=== PATIENT | female | born 1970 | race Caucasian/White ===

== ENCOUNTER 2020-01-04 13:59 | Outpatient (REF) | payer OTHER, SELFPAY | END 2020-01-04 14:00 | disposition home or self-care (01) | LOC: HO.LNP 13:59 | PROVIDERS: Visit Provider Internal Medicine | DX: Z20.828 Contact with and (suspected) exposure to other viral communicable diseases (principal) | CPT/HCPCS: 87635 ==

== ENCOUNTER 2020-01-22 15:52 | Outpatient (REF) | payer OTHER, SELFPAY | END 2020-01-22 15:53 | disposition home or self-care (01) | LOC: HO.LNP 15:52 | PROVIDERS: Visit Provider Internal Medicine | DX: Z20.828 Contact with and (suspected) exposure to other viral communicable diseases (principal) | CPT/HCPCS: U0003 ==

== ENCOUNTER 2020-03-03 15:37 | Outpatient (REF) | payer OTHER, SELFPAY ==
[2020-03-03 17:07] LABS: Influenza A PCR NEGATIVE (Negative); Influenza B PCR NEGATIVE (Negative); Resp Syncy Virus RNA Qual PCR NEGATIVE (Negative); SARS COV2 PCR INHOUSE NEGATIVE (Negative)
== END 2020-03-03 15:38 | disposition home or self-care (01) ==
LOC: HO.LNP 15:37
PROVIDERS: Visit Provider Internal Medicine
DX: Z20.828 Contact with and (suspected) exposure to other viral communicable diseases (principal)
CPT/HCPCS: 0241U

== ENCOUNTER 2020-05-12 14:30 | Outpatient (REF) | payer OTHER, SELFPAY ==
[2020-05-12 15:23] LABS: Influenza A PCR NEGATIVE (Negative); Influenza B PCR NEGATIVE (Negative); Resp Syncy Virus RNA Qual PCR NEGATIVE (Negative); SARS COV2 PCR INHOUSE POSITIVE (Negative)
== END 2020-05-12 14:31 | disposition home or self-care (01) ==
LOC: HO.LNP 14:30
PROVIDERS: Visit Provider Internal Medicine
DX: R52 Pain, unspecified (principal); R50.9 Fever, unspecified
CPT/HCPCS: 0241U

== ENCOUNTER 2020-05-16 10:49 | Inpatient (IN) | payer OTHER, SELFPAY ==
[2020-05-16] VITALS (11 sets, daily range): BP systolic 107–147; BP diastolic 62–85; PULSE 65–118; RESP 12–90; TEMP 36–39.3; O2SAT 89–96; BMI 25.0
--- NOTE | ~2020-05-16 | XR_ITS ---
EXAMINATION: XR CHEST CLINICAL INFORMATION: COVID positive. Chest pain. COMPARISON: None TECHNIQUE: Frontal view of the chest was obtained. FINDINGS: The lungs are expanded with scattered patchy opacities in the mid lung bilaterally likely developing infiltrates. The upper and lower lungs are clear. The heart size and pulmonary vascularity is normal. No gross bony abnormality seen. XR/XR chest 1V IMPRESSION: Patchy opacities bilateral mid lung region likely developing infiltrates.
--- NOTE | ~2020-05-16 | US_ITS ---
EXAMINATION: US VENOUS ULTRASOUND WITH DOPPLER LOWER EXTREMITY, BILATERAL CLINICAL INFORMATION: Bilateral leg swelling. COMPARISON: None TECHNIQUE: Ultrasound of the deep veins is performed from the hip to the calf with compression sonography and color and pulse Doppler assessment. Spectral analysis with color-flow imaging is performed. FINDINGS: RIGHT: There is normal venous compression and respiratory variation and augmented flow. The visualized common femoral vein, superficial femoral vein, profunda femoral vein, popliteal vein, and the trifurcation region shows no evidence of deep venous thrombosis. There is no significant popliteal fossa cyst. LEFT: There is normal venous compression and respiratory variation and augmented flow. The visualized common femoral vein, superficial femoral vein, profunda femoral vein, popliteal vein, and the trifurcation region shows no evidence of deep venous thrombosis. There is no significant popliteal fossa cyst. If the patient's symptoms persist, followup ultrasound in 5 days 7 days might be of value to exclude proximal propagation from a non-visualized calf vein. US/US venous duplex LE BI IMPRESSION: No DVT demonstrated in the bilateral lower extremity.
--- NOTE | ~2020-05-16 | CT_ITS ---
EXAMINATION: CT ANGIOGRAM OF THE CHEST WITH AND WITHOUT CONTRAST (CT PULMONARY ANGIOGRAM FOR PE) CLINICAL INFORMATION: Reason for Exam Elevated D-dimer. COVID-19 positive. Tachycardia. COMPARISON: Portable chest radiograph 05/16/2020, 2 view chest radiographs 12/18/2018, CT abdomen and pelvis noncontrast 11/29/2014. TECHNIQUE: Prior to contrast administration, noncontrast localization images were obtained. Subsequently, multidetector volumetric imaging was performed from the thoracic inlet to below the diaphragms following the administration of 80 mL Omnipaque 350 intravenous contrast. Sagittal, coronal, and MIP oblique sagittal reformatted images were obtained on the CT workstation, uploaded to PACS, and reviewed. This CT examination was performed using dose optimization techniques as appropriate, variously including the following: *Automated exposure control *Adjustment of mA and/or kV according to patient size (this includes techniques or standardized protocols for targeted exams where dose is matched to indication/reason for exam; i.e. extremities or head) *Use of iterative reconstruction technique Total exam dose-length product 222 mGy-cm FINDINGS: QUALITY OF STUDY/CONTRAST BOLUS: Satisfactory. PULMONARY ARTERIES: No central or segmental pulmonary emboli. THORACIC AORTA: No aneurysm or dissection. LUNG: The central airways are clear and there is no endobronchial lesion or bronchiectasis. There are patchy bilateral airspace opacities predominantly mid and lower zones with confluent airspace consolidation superior segment right lower lobe, posterior lateral left upper lobe, and posterior lateral superior segment left lower lobe. Scattered bilateral round and oval opacities are randomly distributed along bronchovascular bundles and subpleural regions, ranging in size from 0.9 cm to largest 3.0 x 2.2 cm in the posterior lateral left lower lobe. There is no cavitation. PLEURA: No pneumothorax. No pleural thickening or effusion. MEDIASTINUM: Normal heart size. No pericardial effusion. No evidence of septal bowing or right heart strain. No pneumomediastinum. No mediastinal adenopathy. There are probable small bilateral hilar nodes. CHEST WALL/AXILLA: No axillary or internal mammary lymphadenopathy. OSSEOUS STRUCTURES: No acute or suspicious osseous abnormality. UPPER ABDOMEN: Unremarkable. No reflux of contrast into the hepatic veins to suggest elevated right heart pressures. CT/CT angio chest PE protocol IMPRESSION: 1. No pulmonary embolism. No thoracic aortic aneurysm or dissection. 2. Scattered bilateral airspace consolidation. There are also round and oval opacities 1-3 cm in size. Although there is no cavitation, the distribution may suggest septic emboli. Clinically correlate. 3. No pneumothorax, pneumomediastinum, or effusion. 4. Probable small bilateral hilar adenopathy. No mediastinal mass or adenopathy. VTE: negative
--- NOTE | ~2020-05-16 | CT_ITS ---
EXAMINATION: CT ANGIOGRAM OF THE CHEST WITH AND WITHOUT CONTRAST (CT PULMONARY ANGIOGRAM FOR PE) CLINICAL INFORMATION: Short of breath. COMPARISON: None TECHNIQUE: Prior to contrast administration, noncontrast localization images were obtained. Subsequently, multidetector volumetric imaging was performed from the thoracic inlet to below the diaphragms following the administration of 80 mL Omnipaque 350 intravenous contrast. No contrast reaction reported Sagittal, coronal, and MIP oblique sagittal reformatted images were obtained on the CT workstation, uploaded to PACS, and reviewed. This CT examination was performed using dose optimization techniques as appropriate, variously including the following: *Automated exposure control *Adjustment of mA and/or kV according to patient size (this includes techniques or standardized protocols for targeted exams where dose is matched to indication/reason for exam; i.e. extremities or head) *Use of iterative reconstruction technique Total exam dose-length product 123 mGy-cm FINDINGS: QUALITY OF STUDY/CONTRAST BOLUS: Satisfactory. PULMONARY ARTERIES: No central or segmental pulmonary emboli. THORACIC AORTA: No aneurysm or dissection. There is normal aortic arch branching. LUNG: There is bilateral peripheral-based bilateral upper lobe, bilateral lower lobe, and lingular and right middle lobe infiltrates. PLEURA: No pleural effusion or pneumothorax. MEDIASTINUM: Normal heart size. No pericardial effusion. No hilar or mediastinal lymphadenopathy. No evidence of septal bowing or right heart strain. CHEST WALL/AXILLA: No axillary or internal mammary lymphadenopathy. OSSEOUS STRUCTURES: No lytic or sclerotic process seen. UPPER ABDOMEN: Visualized liver, spleen, pancreas and bilateral adrenal glands are unremarkable. No reflux of contrast into the hepatic veins to suggest elevated right heart pressures. CT/CT angio chest PE protocol IMPRESSION: Multilobar infiltrates. No evidence of PE or aortic aneurysm. VTE: negative.
--- NOTE | 2020-05-16 11:31 | PC.NURSE ---
Pt's sats dipping into high 80s with coughing fits. When at rest her sats are 91% on room air. 2liters o2 via nc placed on pt with sats improving to 95%.
--- NOTE | 2020-05-16 12:12 | ECG_ITS ---
Test Reason : SOB Blood Pressure : / mmHG Vent. Rate : 107 BPM Atrial Rate : 107 BPM P-R Int : 124 ms QRS Dur : 084 ms QT Int : 338 ms P-R-T Axes : 040 -37 099 degrees QTc Int : 451 ms Sinus tachycardia Possible Left atrial enlargement Left axis deviation Left ventricular hypertrophy with repolarization abnormality Abnormal ECG No previous ECGs available Referred By: Bela Mason Electronically Signed By:VERONICA SIMS
[2020-05-16 12:50] LABS: Basophils Percent Auto 0.3 % (0-2); Imm Gran Abs Auto 0.01 X10*3/uL (0.00-0.03); Imm Gran Pct Auto 0.3 % (0.0-0.4); MANUAL DIFF FLAG SCAN; PLT CLUMP 1; SCAN SMEAR FLAG 1
[2020-05-16 12:52] LABS: Hematocrit 40.3 % (37-47); Hemoglobin 13.9 g/dl (12.0-16.0); Lymphocytes Absolute Auto 0.5 X10*3/uL (1.2-4.9); Lymphocytes Percent Auto 14.4 % (20-40); Mean Corpuscular HGB Conc 34.5 g/dl (31.0-35.0); Mean Corpuscular Hemoglobin 29.8 pg (27.0-33.0); Mean Corpuscular Volume 86.5 fL (80-98); Mean Platelet Volume 10.3 fL (9.4-12.3); Monocytes Absolute Auto 0.1 X10*3/uL (0.1-1.2); Monocytes Percent Auto 3.6 % (2-11); Neutrophils Absolute Auto 2.7 X10*3/uL (2.0-8.3); Neutrophils Percent Auto 81.4 % (45-73); Platelet Count 136 X10*3/uL (160-400); Red Blood Count 4.66 X10*6/uL (4.20-5.50); Red Cell Distribution Width 12.1 % (11.0-16.0); White Blood Count 3.3 X10*3/uL (4.8-10.8)
[2020-05-16] MEDS: Acetaminophen 325 MG TABLET 650 MG PO (12:55)
[2020-05-16 13:11] LABS: Lactic Acid 0.8 mmol/L (0.5-2.0)
[2020-05-16] MEDS: Albuterol Sulfate 90 MCG 8 GM INHALER 4 PUFF INHALE (13:15)
[2020-05-16 13:16] LABS: SLIDE REVIEW VERIFIED
[2020-05-16 13:17] LABS: Alanine Aminotransferase 43 U/L (0-31); Albumin Level 3.5 g/dL (3.5-5.0); Alkaline Phosphatase 55 U/L (39-117); Anion Gap 15 (12-20); Aspartate Amino Transferase 64 U/L (5-31); Bilirubin Direct 0.2 mg/dL (0.0-0.5); Bilirubin Total 0.3 mg/dL (0.0-1.0); Blood Urea Nitrogen 13 mg/dL (9-16); Calcium 7.9 mg/dL (8.4-10.2); Carbon Dioxide 27 mmol/L (22-29); Chloride 95 mmol/L (96-108); Creatinine Clr Calc Pharmacy 80.8; Estimated Glomerular Filt Rate > 60; Glucose Random 110 mg/dL (60-115); Lactate Dehydrogenase 450 U/L (122-220); Magnesium 1.7 mg/dL (1.6-2.6); Potassium 3.1 mmol/L (3.3-5.1); Sodium 134 mmol/L (135-145); Total Protein 6.1 g/dL (6.5-8.0)
[2020-05-16 13:21] LABS: B Type Natriuretic Peptide < 10 pg/mL (<100); Troponin-I High Sensitivity 8.8 ng/L (<3.5-17.0)
[2020-05-16] MEDS: 0.9 % Sodium Chloride 1,000 ML 999 ML IVCONT (13:30)
[2020-05-16 13:35] LABS: Ferritin 802 ng/mL (10-250)
[2020-05-16 13:35] LABS: Procalcitonin 0.09 ng/mL
--- NOTE | 2020-05-16 14:02 | ED_ITS ---
HPI - URI/Sore Throat General Chief Complaint: Upper Respiratory Symptoms Stated Complaint: COVID POS WEAK Time Seen by Provider: 05/16/20 12:00 Source: patient Mode of arrival: ambulatory History of Present Illness HPI Narrative: 49-year-old female known COVID-19 positive on 05/12 presenting to the ED complaining of generalized fatigue/weakness, fever, LONGORIA, dry cough x6 days. Reports decreased p.o. intake. Denies chest pain, abdominal pain, nausea/vomiting, LE edema, history of blood clots, cigarette smoking, recent travel. MD elicited complaint: fever and cough Related Data Home Medications Medication Instructions Recorded Confirmed No Known Home Meds 05/16/20 05/16/20 Allergies Allergy/AdvReac Type Severity Reaction Status Date / Time No Known Allergies Allergy Verified 05/16/20 11:33 Review of Systems Review of Systems: Constitutional: + Fever, No Chills, No Night Sweats, + Fatigue, + Malaise ENT/Mouth: No Ear Pain, No Nasal Congestion, No Hoarseness, No sore throat, No Rhinorrhea Cardiovascular: No Chest Pain, + SOB, + Dyspnea on Exertion, No Orthopnea, No Edema, No Palpitations Respiratory: + Cough, No Sputum, No Wheezing Gastrointestinal: No Nausea, No Vomiting, No Diarrhea, No Constipation, No Ab dominal pain Musculoskeletal: No joint pain, + Myalgias, No Joint Swelling Skin: No Skin Lesions, No rash Neuro: + Weakness, No Headache Yes all other systems are reviewed and are negative PMFSH Past Medical History Attestation statement: The following information was validated with the patient. Medical History (Updated 05/16/20 @ 16:23 by JESSICA Joyner) Healthy adult Social History Social History Alcohol intake: current Alcohol intake frequency: holidays/special occasions only Smoking Status: Never smoker Use of substances other than those prescribed or required for medical reasons: No Advance Directives: No Advance Directives Information Provided: Yes Physical Exam Vital Signs: Vital Signs: Last Vital Signs Temp 101.9 F H 05/16/20 14:38 Pulse 110 H 05/16/20 14:38 Resp 19 05/16/20 14:38 BP 118/62 05/16/20 14:38 Pulse Ox 95 05/16/20 14:43 Body Mass Index 25.0 Const: General: cooperative and comfortable Orientation/consciousness: patient oriented x3 Limitations: no limitations HENMT: Head: Yes normal to inspection Ears: hearing grossly normal bilaterally General nose exam: Normal external nose present Face and sinus: Yes normal facial exam Eyes: General: appearance normal, both eyes and all related structures EOM: EOMs intact bilaterally Neck: Neck: Yes normal visual inspection Resp: Effort & Inspection: normal respiratory effort Auscultation: clear to auscultation bilaterally, no crackles and no wheezes Cardio: Rate: regular rate Heart sounds: S1 normal heart sound present and S2 normal heart sound present GI: Inspection: Yes normal to inspection Palpation (GI): Soft to palpation, nontender, no guarding and not rigid Skin: Rashes: no rashes Wounds: no wounds Neuro: General: patient oriented x3 Gait exam (Neuro): Normal gait present Extrem: General: Yes normal to inspection, Yes no pedal edema and Yes no calf tenderness Course Course Course Narrative: -leukopenia of 3.3, potassium slightly low at 3.1 > p.o. rep letion ordered. Ferritin/LDH elevated -troponin 8.8 >> will obtain 3 hour repeat -AST/ALT elevated --patient ambulated with pulse ox in the ED and desatted to 90% on RA, and 88% after ambulation. Patient is consistently tachycardic D-dimer added -1442-- D-dimer elevated to 325 >> CTA ordered CT angio chest PE protocol IMPRESSION: 1. No pulmonary embolism. No thoracic aortic aneurysm or dissection. 2. Scattered bilateral airspace consolidation. There are also round and oval opacities 1-3 cm in size. Although there is no cavitation, the distribution may suggest septic emboli. Clinically correlate. 3. No pneumothorax, pneumomediastinum, or effusion. 4. Probable small bilateral hilar adenopathy. No mediastinal mass or adenopathy. VTE: negative >> plan to admit for further management MDM - URI/Sore Throat MDM Narrative Medical decision making narrative: 49-year-old female known COVID-19 positive on 05/12 presenting to the ED complaining of generalized fatigue/weakness, fever, [place]ORIA, dry cough x6 days. On exam initial afebrile, tachycardic likely from fever, satting 91-92% on RA, lungs CTA. Concern for COVID pneumonia vs PE. Low concern for bacterial infection/sepsis as known COVID-19 infection/viral illness. Unlikely CHF Plan: EKG, labs, CXR, albuterol, reassess Medical Records Attestation: I reviewed the patient's medical records. Lab Data Attestation: I reviewed the patient's lab results. Result diagrams: 05/16/20 12:33 05/16/20 12:33 Labs: Lab Results 05/16/20 05/16/20 05/16/20 Range/Units 12:32 12:33 12:33 WBC 3.3 L (4.8-10.8) X10*3/uL RBC 4.66 (4.20-5.50) X10*6/uL Hgb 13.9 (12.0-16.0) g/dl Hct 40.3 (37-47) % MCV 86.5 (80-98) fL MCH 29.8 (27.0-33.0) pg MCHC 34.5 (31.0-35.0) g/dl RDW 12.1 (11.0-16.0) % Plt Count 136 L (160-400) X10*3/uL MPV 10.3 (9.4-12.3) fL Immature Gran % (Auto) 0.3 (0.0-0.4) % Neut % (Auto) 81.4 H (45-73) % Lymph % (Auto) 14.4 L (20-40) % [place] % (Auto) 3.6 (2-11) % Eos % (Auto) 0.0 (0-4) % Baso % (Auto) 0.3 (0-2) % Lymph # (Auto) 0.5 L (1.2-4.9) X10*3/uL [place] # (Auto) 0.1 (0.1-1.2) X10*3/uL Eos # (Auto) 0.0 (0.0-0.4) X10*3/uL Baso # (Auto) 0.0 (0.0-0.2) X10*3/uL Abs Immat Gran (auto) 0.01 (0.00-0.03) X10*3/uL Absolute Neuts (auto) 2.7 (2.0-8.3) X10*3/uL Absolute Nucleated RBC 0.000 (0.0-0.012) X10*3/uL Nucleated RBC % (auto) 0.0 (0.0-0.2) /100WBC Smear Tech's Comments VERIFIED PT (10.8-13.0) SEC INR (0.9-1.1) APTT (24.1-38.0) SEC D-Dimer NG/ML Hold Blue Top Sodium 134 L (135-145) mmol/L Potassium 3.1 L (3.3-5.1) mmol/L Chloride 95 L (96-108) mmol/L Carbon Dioxide 27 (22-29) mmol/L Anion Gap 15 (12-20) BUN 13 (9-16) mg/dL Creatinine 0.75 (0.5-1.4) mg/dL Estim Creat Clear Calc 80.8 Estimated GFR > 60 Random Glucose 110 (60-115) mg/dL Lactic Acid (0.5-2.0) mmol/L Calcium 7.9 L (8.4-10.2) mg/dL Magnesium 1.7 (1.6-2.6) mg/dL Ferritin (10-250) ng/mL Total Bilirubin 0.3 (0.0-1.0) mg/dL Direct Bilirubin 0.2 (0.0-0.5) mg/dL AST 64 H (5-31) U/L ALT 43 H (0-31) U/L Alkaline Phosphatase 55 (39-117) U/L Lactate Dehydrogenase 450 H (122-220) U/L Troponin I High Sens (<3.5-17.0) ng/L B-Natriuretic Peptide (<100) pg/mL Total Protein 6.1 L (6.5-8.0) g/dL Albumin 3.5 (3.5-5.0) g/dL Procalcitonin 0.09 ng/mL 05/16/20 05/16/20 05/16/20 Range/Units 12:33 12:33 12:33 WBC (4.8-10.8) X10*3/uL RBC (4.20-5.50) X10*6/uL Hgb (12.0-16.0) g/dl Hct (37-47) % MCV (80-98) fL MCH (27.0-33.0) pg MCHC (31.0-35.0) g/dl RDW (11.0-16.0) % Plt Count (160-400) X10*3/uL MPV (9.4-12.3) fL Immature Gran % (Auto) (0.0-0.4) % Neut % (Auto) (45-73) % Lymph % (Auto) (20-40) % [place] % (Auto) (2-11) % Eos % (Auto) (0-4) % Baso % (Auto) (0-2) % Lymph # (Auto) (1.2-4.9) X10*3/uL [place] # (Auto) (0.1-1.2) X10*3/uL Eos # (Auto) (0.0-0.4) X10*3/uL Baso # (Auto) (0.0-0.2) X10*3/uL Abs Immat Gran (auto) (0.00-0.03) X10*3/uL Absolute Neuts (auto) (2.0-8.3) X10*3/uL Absolute Nucleated RBC (0.0-0.012) X10*3/uL Nucleated RBC % (auto) (0.0-0.2) /100WBC Smear Tech's Comments PT 13.8 H (10.8-13.0) SEC INR 1.2 H (0.9-1.1) APTT 39.0 H (24.1-38.0) SEC D-Dimer 325 NG/ML Hold Blue Top SEE NOTE Sodium (135-145) mmol/L Potassium (3.3-5.1) mmol/L Chloride (96-108) mmol/L Carbon Dioxide (22-29) mmol/L Anion Gap (12-20) BUN (9-16) mg/dL Creatinine (0.5-1.4) mg/dL Estim Creat Clear Calc Estimated GFR Random Glucose (60-115) mg/dL Lactic Acid 0.8 (0.5-2.0) mmol/L Calcium (8.4-10.2) mg/dL Magnesium (1.6-2.6) mg/dL Ferritin 802 H (10-250) ng/mL Total Bilirubin (0.0-1.0) mg/dL Direct Bilirubin (0.0-0.5) mg/dL AST (5-31) U/L ALT (0-31) U/L Alkaline Phosphatase (39-117) U/L Lactate Dehydrogenase (122-220) U/L Troponin I High Sens (<3.5-17.0) ng/L B-Natriuretic Peptide (<100) pg/mL Total Protein (6.5-8.0) g/dL Albumin (3.5-5.0) g/dL Procalcitonin ng/mL 05/16/20 05/16/20 Range/Units 12:33 15:29 WBC (4.8-10.8) X10*3/uL RBC (4.20-5.50) X10*6/uL Hgb (12.0-16.0) g/dl Hct (37-47) % MCV (80-98) fL MCH (27.0-33.0) pg MCHC (31.0-35.0) g/dl RDW (11.0-16.0) % Plt Count (160-400) X10*3/uL MPV (9.4-12.3) fL Immature Gran % (Auto) (0.0-0.4) % Neut % (Auto) (45-73) % Lymph % (Auto) (20-40) % [place] % (Auto) (2-11) % Eos % (Auto) (0-4) % Baso % (Auto) (0-2) % Lymph # (Auto) (1.2-4.9) X10*3/uL [place] # (Auto) (0.1-1.2) X10*3/uL Eos # (Auto) (0.0-0.4) X10*3/uL Baso # (Auto) (0.0-0.2) X10*3/uL Abs Immat Gran (auto) (0.00-0.03) X10*3/uL Absolute Neuts (auto) (2.0-8.3) X10*3/uL Absolute Nucleated RBC (0.0-0.012) X10*3/uL Nucleated RBC % (auto) (0.0-0.2) /100WBC Smear Tech's Comments PT (10.8-13.0) SEC INR (0.9-1.1) APTT (24.1-38.0) SEC D-Dimer NG/ML Hold Blue Top Sodium (135-145) mmol/L Potassium (3.3-5.1) mmol/L Chloride (96-108) mmol/L Carbon Dioxide (22-29) mmol/L Anion Gap (12-20) BUN (9-16) mg/dL Creatinine (0.5-1.4) mg/dL Estim Creat Clear Calc Estimated GFR Random Glucose (60-115) mg/dL Lactic Acid (0.5-2.0) mmol/L Calcium (8.4-10.2) mg/dL Magnesium (1.6-2.6) mg/dL Ferritin (10-250) ng/mL Total Bilirubin (0.0-1.0) mg/dL Direct Bilirubin (0.0-0.5) mg/dL AST (5-31) U/L ALT (0-31) U/L Alkaline Phosphatase (39-117) U/L Lactate Dehydrogenase (122-220) U/L Troponin I High Sens 8.8 13.2 (<3.5-17.0) ng/L B-Natriuretic Peptide < 10 (<100) pg/mL Total Protein (6.5-8.0) g/dL Albumin (3.5-5.0) g/dL Procalcitonin ng/mL ECG Data Attestation: I personally reviewed and interpreted this ECG as follows: ECG interpretation date: 05/16/20 ECG interpretation time: 12:18 Prior ECG tracings: not available for review Interpretation: EKG sinus tachycardia with a rate of 107. ST depressions in V4 through V6. Artifact present. Discharge Plan Discharge Clinical Impression: Pneumonia due to 2019-nCoV Patient Disposition: Admitted As Inpatient Prescriptions: No Action No Known Home Meds RF: 0
[2020-05-16 14:15] LABS: D Dimer 325 NG/ML
[2020-05-16] MEDS: Potassium Chloride Packet 20 MEQ PACKET 40 MEQ PO (14:36)
[2020-05-16] MEDS: Ibuprofen 600 MG TABLET PO (14:37)
[2020-05-16 14:52] LABS: INTERNATIONAL NORM RATIO 1.2 (0.9-1.1); Prothrombin Time 13.8 SEC (10.8-13.0)
--- NOTE | 2020-05-16 15:00 | PC.NURSE ---
Pt given po potassium replacement and oob to use commode. CTA of the chest ordered and pt is aware of the plan for further imaging studies.
--- NOTE | 2020-05-16 15:18 | PC.RT ---
Walked pt. She said she felt dizzy and light headed so kept walk short. Spo2 was 90% prior tp starting. RR increased to 28. Post walk pt SpO2 was 88%.
[2020-05-16] MEDS: iohexoL 350 MG/ML 75 ML INFUS..BTL 65 ML IV (15:29)
[2020-05-16] MEDS: dexAMETHasone sod phosphate 4 MG/ML VIAL 6 MG IVPUSH (15:33)
[2020-05-16] MEDS: cefTRIAXone sodium 1 GM in 0.9 % Sodium Chloride 50 ML IV (15:35)
[2020-05-16 16:03] LABS: Troponin-I High Sensitivity 13.2 ng/L (<3.5-17.0)
[2020-05-16] MEDS: Azithromycin 500 MG in 0.9 % Sodium Chloride 250 ML 125 MG IV (16:13)
--- NOTE | 2020-05-16 16:36 | PC.NURSE ---
Pt remains on oxygen at this time at 2 liters. She becomes very LONGORIA when climbing out of bed to commode. VS stable. She is having a small snack at this time. Plan for IV abx, steroids, and admission to inpatient unit.
--- NOTE | 2020-05-16 16:53 | PM.IMHP ---
History of Present Illness Date of Service: 05/16/20 Chief Complaint: Shortness of breath, fever and chills 49F presented with fever, chills. Patient was diagnosed with COVID on 05/12/2020. She 1st started having symptoms about a week prior to that. She was exposed to positive family members. She may feeling fatigued, fever, chills, body aches, lightheaded, anosmia, cough. She was getting much worse today so she decided to come to the ED. in the ED noted to have hypoxia, 89% on room air. CT chest showed bilateral opacities. Review of Systems Review of Systems: Constitutional: fever, chills Eyes: denies blurry vision ENT: denies sore throat CVS: denies chest pain Respiratory: mild dyspnea GI: no abdominal pain : denies dysuria MSK: denies neck pain Skin: denies rash Neuro: denies specific motor weakness Psych: denies suicidal ideation Endocrine: denies heat/cold intoleratnce Hematologic: denies easy bleeding Allergy: denies hives [facility] Medical History (Updated 05/16/20 @ 16:57 by Kris Horner MD) Nephrolithiasis Pertinent family history: Lung cancer Surgical History (Updated 05/16/20 @ 16:56 by Kris Horner MD) H/O lithotripsy Social History Alcohol intake: current Alcohol intake frequency: holidays/special occasions only Smoking Status: Never smoker Use of substances other than those prescribed or required for medical reasons: No Advance Directives: No Advance Directives Information Provided: Yes Meds Allergies Allergy/AdvReac Type Severity Reaction Status Date / Time No Known Allergies Allergy Verified 05/16/20 11:33 Active Medications: Current Medications Generic Name Dose Route Start Last Admin Trade Name Freq PRN Reason Stop Dose Admin Azithromycin 500 mg/ Sodium 250 mls @ 125 mls/hr 05/16/20 15:00 05/16/20 16:13 Chloride IV 05/16/20 16:59 125 mls/hr ONCE ONE Administration Pharmacy Consult 1 each 05/16/20 15:04 Consult Rx Perform Med Rec MISCELLANE ONCE PRN Consult order Home Medications Medication Instructions Recorded Confirmed Last Taken Type No Known Home Meds 05/16/20 05/16/20 Unknown History Physical Exam Vital Signs and Narrative: Vital Signs: Last Vital Signs Temp 101.9 F H 05/16/20 14:38 Pulse 110 H 05/16/20 14:38 Resp 19 05/16/20 14:38 BP 118/62 05/16/20 14:38 Pulse Ox 95 05/16/20 14:43 Body Mass Index 25.0 General: ill appearing HEENT: atraumatic Neck: normal to visual inspection CVS: S1, S2, rapid regular Resp: bilateral crackles Chest: non tender GI: soft, non tender, non distended : no CVA tenderness Skin: no rashes Extremities: no edema Neuro: Oriented X3, grossly intact Psych: cooperative, Results Labs CBC and Chem 7: 05/16/20 12:33 05/16/20 12:33 Labs: Laboratory Results - last 24 hr 05/16/20 05/16/20 05/16/20 12:32 12:33 12:33 MCV 86.5 MCH 29.8 MCHC 34.5 RDW 12.1 Plt Count 136 L MPV 10.3 Immature Gran % (Auto) 0.3 Neut % (Auto) 81.4 H Lymph % (Auto) 14.4 L [place] % (Auto) 3.6 Eos % (Auto) 0.0 Baso % (Auto) 0.3 Lymph # (Auto) 0.5 L [place] # (Auto) 0.1 Eos # (Auto) 0.0 Baso # (Auto) 0.0 Abs Immat Gran (auto) 0.01 Absolute Neuts (auto) 2.7 Absolute Nucleated RBC 0.000 Nucleated RBC % (auto) 0.0 Smear Tech's Comments VERIFIED PT INR APTT D-Dimer Hold Blue Top Anion Gap 15 Estim Creat Clear Calc 80.8 Estimated GFR > 60 Random Glucose 110 Lactic Acid Calcium 7.9 L Magnesium 1.7 Ferritin Total Bilirubin 0.3 Direct Bilirubin 0.2 AST 64 H ALT 43 H Alkaline Phosphatase 55 Lactate Dehydrogenase 450 H Troponin I High Sens B-Natriuretic Peptide Total Protein 6.1 L Albumin 3.5 Procalcitonin 0.09 05/16/20 05/16/20 05/16/20 12:33 12:33 12:33 MCV MCH MCHC RDW Plt Count MPV Immature Gran % (Auto) Neut % (Auto) Lymph % (Auto) [place] % (Auto) Eos % (Auto) Baso % (Auto) Lymph # (Auto) [place] # (Auto) Eos # (Auto) Baso # (Auto) Abs Immat Gran (auto) Absolute Neuts (auto) Absolute Nucleated RBC Nucleated RBC % (auto) Smear Tech's Comments PT 13.8 H INR 1.2 H APTT 39.0 H D-Dimer 325 Hold Blue Top SEE NOTE Anion Gap Estim Creat Clear Calc Estimated GFR Random Glucose Lactic Acid 0.8 Calcium Magnesium Ferritin 802 H Total Bilirubin Direct Bilirubin AST ALT Alkaline Phosphatase Lactate Dehydrogenase Troponin I High Sens B-Natriuretic Peptide Total Protein Albumin Procalcitonin 05/16/20 05/16/20 12:33 15:29 MCV MCH MCHC RDW Plt Count MPV Immature Gran % (Auto) Neut % (Auto) Lymph % (Auto) [place] % (Auto) Eos % (Auto) Baso % (Auto) Lymph # (Auto) [place] # (Auto) Eos # (Auto) Baso # (Auto) Abs Immat Gran (auto) Absolute Neuts (auto) Absolute Nucleated RBC Nucleated RBC % (auto) Smear Tech's Comments PT INR APTT D-Dimer Hold Blue Top Anion Gap Estim Creat Clear Calc Estimated GFR Random Glucose Lactic Acid Calcium Magnesium Ferritin Total Bilirubin Direct Bilirubin AST ALT Alkaline Phosphatase Lactate Dehydrogenase Troponin I High Sens 8.8 13.2 B-Natriuretic Peptide < 10 Total Protein Albumin Procalcitonin Imaging Radiologist's Impressions: Impressions Chest X-Ray 05/16/20 12:12 IMPRESSION: Patchy opacities bilateral mid lung region likely developing infiltrates. Chest CTA 05/16/20 14:43 IMPRESSION: 1. No pulmonary embolism. No thoracic aortic aneurysm or dissection. 2. Scattered bilateral airspace consolidation. There are also round and oval opacities 1-3 cm in size. Although there is no cavitation, the distribution may suggest septic emboli. Clinically correlate. 3. No pneumothorax, pneumomediastinum, or effusion. 4. Probable small bilateral hilar adenopathy. No mediastinal mass or adenopathy. VTE: negative Assessment and Plan (1) Viral sepsis: Status: Acute (2) Acute respiratory failure with hypoxia: Status: Acute (3) Pneumonia due to 2019-nCoV: Status: Acute 49F presented with fever, chills Acute hypoxic respiratory failure and viral sepsis due to COVID pneumonia elevated inflammatory labs, patient at risk for decompensation O2 support, monitor Decadron Id eval antipyretics
[2020-05-16] MEDS: 0.9 % Sodium Chloride Flush 3 ML SYRINGE IVFLUSH (23:33)
[2020-05-17 03:33] VITALS: BP 131/74; PULSE 78; RESP 20; TEMP 37.4; O2SAT 95
[2020-05-17 07:18] LABS: Hemoglobin 14.4 g/dl (12.0-16.0); Imm Gran Abs Auto 0.02 X10*3/uL (0.00-0.03); Imm Gran Pct Auto 0.5 % (0.0-0.4); Lymphocytes Absolute Auto 0.6 X10*3/uL (1.2-4.9); Lymphocytes Percent Auto 13.4 % (20-40); MANUAL DIFF FLAG SCAN; Mean Corpuscular HGB Conc 34.3 g/dl (31.0-35.0); Mean Corpuscular Hemoglobin 30.2 pg (27.0-33.0); Mean Corpuscular Volume 88.1 fL (80-98); Mean Platelet Volume 10.3 fL (9.4-12.3); Monocytes Absolute Auto 0.2 X10*3/uL (0.1-1.2); Monocytes Percent Auto 4.4 % (2-11); Neutrophils Absolute Auto 3.3 X10*3/uL (2.0-8.3); Neutrophils Percent Auto 81.7 % (45-73); Platelet Count 178 X10*3/uL (160-400); Red Blood Count 4.77 X10*6/uL (4.20-5.50); Red Cell Distribution Width 12.5 % (11.0-16.0); SCAN SMEAR FLAG 1; White Blood Count 4.1 X10*3/uL (4.8-10.8)
[2020-05-17 07:36] LABS: Blood Urea Nitrogen 11 mg/dL (9-16); Creatinine Clr Calc Pharmacy 79.6; Estimated Glomerular Filt Rate > 60; Glucose Random 140 mg/dL (60-115)
[2020-05-17 07:54] LABS: Anion Gap 15 (12-20); Calcium 8.3 mg/dL (8.4-10.2); Carbon Dioxide 27 mmol/L (22-29); Chloride 102 mmol/L (96-108); Potassium 3.7 mmol/L (3.3-5.1); Sodium 140 mmol/L (135-145)
[2020-05-17 08:00] VITALS: BP 118/65; PULSE 93; RESP 18; TEMP 36.8; O2SAT 92
--- NOTE | 2020-05-17 08:03 | ECG_ITS ---
Test Reason : SOB Blood Pressure : / mmHG Vent. Rate : 116 BPM Atrial Rate : 116 BPM P-R Int : 128 ms QRS Dur : 086 ms QT Int : 340 ms P-R-T Axes : 036 -40 112 degrees QTc Int : 472 ms Sinus tachycardia Possible Left atrial enlargement Left axis deviation Left ventricular hypertrophy with repolarization abnormality Abnormal ECG When compared with ECG of 16-MAY-2020 12:18, No significant change was found Referred By: Bela Mason Electronically Signed By:VERONICA SIMS
[2020-05-17 08:07] LABS: SLIDE REVIEW VERIFIED
[2020-05-17] MEDS: dexAMETHasone sod phosphate 4 MG/ML VIAL 6 MG IVPUSH (08:55)
[2020-05-17] MEDS: 0.9 % Sodium Chloride Flush 3 ML SYRINGE IVFLUSH ×2 (08:56→23:50)
--- NOTE | 2020-05-17 11:32 | HO.PM.IMPN ---
Subjective Subjective Date of Service: 05/17/20 Interval History: sob Cardiovascular Cardiovascular: Reports no additional cardiovascular complaints Gastrointestinal Gastrointestinal: Reports no additional gastrointestinal complaints Physical Exam Vital Signs: Vital Signs: Last Vital Signs Temp 98.3 F 05/17/20 08:00 Pulse 93 05/17/20 08:00 Resp 18 05/17/20 08:00 BP 118/65 05/17/20 08:00 Pulse Ox 92 05/17/20 08:00 Body Mass Index 25.0 General: AO X 3, no acute distress Resp: CTA bilateral CVS: S1,S2,RRR GI: soft, non tender, non distended Neuro: motor grossly intact Psych: appropriate affect Objective Data Current Medications Generic Name Dose Route Start Last Admin Trade Name Freq PRN Reason Stop Dose Admin Acetaminophen 650 mg 05/16/20 19:19 Acetaminophen 325 Mg Tablet PO Q6H PRN Pain, Mild (Pain Scale 1-3) Dexamethasone Sodium Phosphate 6 mg 05/17/20 09:00 05/17/20 08:55 Dexamethasone Sod Phosphate 4 Mg/Ml Vial IVPUSH 6 mg DAILY [facility] Administration Enoxaparin Sodium 40 mg 05/16/20 19:19 05/16/20 20:41 Enoxaparin Sodium 40 Mg/0.4 Ml Syringe SUBCUT Not Given Q24H [facility] Pharmacy Consult 1 each 05/16/20 15:04 Consult Rx Perform Med Rec MISCELLANE ONCE PRN Consult order Sodium Chloride 3 ml 05/17/20 00:00 05/17/20 08:56 0.9 % Sodium Chloride Flush 3 Ml Syringe IVFLUSH 3 ml QSHIFT [facility] Administration Labs CBC & Chem 7: 05/17/20 06:17 05/17/20 06:17 Assessment and Plan (1) Viral sepsis: Status: Acute (2) Acute respiratory failure with hypoxia: Status: Acute (3) Pneumonia due to 2019-nCoV: Status: Acute Assessment and Plan: 49F presented with fever, chills Acute hypoxic respiratory failure and viral sepsis due to COVID pneumonia wean o2 as tolerated Decadron day 04/23 Id antipyretics
--- NOTE | 2020-05-17 11:46 | MHC.CM.PN ---
DIRECTOR OF UNDERGRADUATE ADMISSIONS completed via telephone (room ext [phone]). Pt reports she lives at home with her and she is fully independent, works and drives. Pt has no DME and no services. pt confirms Clemente Gallegos is her current PCP. Pt is interested in completing a HCP during her admission naming her daughter, Jennifer Brush ([phone]) as her agent. Current DC plan is home with no services pt will self arrange transportation
[2020-05-17 12:00] VITALS: BP 129/67; PULSE 82; RESP 20; TEMP 37.3; O2SAT 91
--- NOTE | 2020-05-17 13:03 | P.CNID_ITS ---
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 Her has a headache and no known reported risk factors for poor outcome for COVID but has not been tested They were consorting without masks with sister and [id number] who ended up having COVID but didnt look sick She is on 3 liters oxygen now with saturation 3 liters Review of Systems Review of Systems: Yes all other systems are reviewed and are negative COUNTS INCLUDE 234 BEDS AT THE [facility] Past Medical History Medical History Nephrolithiasis Family History Family history: reviewed and not pertinent Surgical History Surgical History H/O lithotripsy Social History Social History Household Members: Spouse Housing: House Do you presently have visiting nurse or other home services: No Alcohol intake: current Alcohol intake frequency: holidays/special occasions only Smoking Status: Never smoker Use of substances other than those prescribed or required for medical reasons: No Currently Displaying Signs/Symptoms of Drug Intoxication Withdrawal: No Have you been hit, kicked, punched, or otherwise hurt by someone within the past year? If so, by whom?: No Do you feel safe in your current relationship?: Yes Is there a partner from a previous relationship who is making you feel unsafe now?: No Are you made to feel afraid or neglected: No Advance Directives: No Advance Directives Information Provided: Yes Do you have thoughts of harming others: None Do you have a plan to hurt others: No Plan Recently lost weight without trying: No service: No Current occupational status: employed Meds Allergies Allergy/AdvReac Type Severity Reaction Status Date / Time No Known Allergies Allergy Verified 05/16/20 11:33 Active Medications: Current Medications Generic Name Dose Route Start Last Admin Trade Name Freq PRN Reason Stop Dose Admin Acetaminophen 650 mg 05/16/20 19:19 Acetaminophen 325 Mg Tablet PO Q6H PRN Pain, Mild (Pain Scale 1-3) Dexamethasone Sodium Phosphate 6 mg 05/17/20 09:00 05/17/20 08:55 Dexamethasone Sod Phosphate 4 Mg/Ml Vial IVPUSH 6 mg DAILY [facility] Administration Enoxaparin Sodium 40 mg 05/16/20 19:19 05/16/20 20:41 Enoxaparin Sodium 40 Mg/0.4 Ml Syringe SUBCUT Not Given Q24H [facility] Pharmacy Consult 1 each 05/16/20 15:04 Consult Rx Perform Med Rec MISCELLANE ONCE PRN Consult order Sodium Chloride 3 ml 05/17/20 00:00 05/17/20 08:56 0.9 % Sodium Chloride Flush 3 Ml Syringe IVFLUSH 3 ml QSHIFT [facility] Administration Home Medications Medication Instructions Recorded Confirmed Last Taken Type No Known Home Meds 05/16/20 05/16/20 Unknown History Physical Exam Vital Signs: Vital Signs: Last Vital Signs Temp 99.2 F 05/17/20 12:00 Pulse 82 05/17/20 12:00 Resp 20 05/17/20 12:00 BP 129/67 05/17/20 12:00 Pulse Ox 91 L 05/17/20 12:00 Body Mass Index 25.0 Const: General: comfortable Orientation/consciousness: patient oriented x3 HENMT: Head: Yes normal to inspection Eyes: General: appearance normal, both eyes and all related structures Resp: Effort & Inspection: normal respiratory effort Cardio: Rate: regular rate Rhythm: regular rhythm GI: Palpation (GI): Soft to palpation and nontender : General: Yes no CVA tenderness Back/Spine/Pelvis: Back: no CVA tenderness Skin: General skin exam: no rashes or lesions noted Neuro: General: patient oriented x3 Extrem: General: Yes normal to inspection Results Labs CBC & Chem 7: 05/17/20 06:17 05/17/20 06:17 Labs: Short CBC 05/17/20 Range/Units 06:17 WBC 4.1 L (4.8-10.8) X10*3/uL Hgb 14.4 (12.0-16.0) g/dl Hct 42.0 (37-47) % Plt Count 178 D (160-400) X10*3/uL BMP 05/16/20 05/17/20 12:33 06:17 Sodium 134 L 140 Potassium 3.1 L 3.7 Chloride 95 L 102 Carbon Dioxide 27 27 BUN 13 11 Creatinine 0.75 0.76 Calcium 7.9 L 8.3 L Liver Function 05/16/20 Range/Units 12:33 Total Bilirubin 0.3 (0.0-1.0) mg/dL Direct Bilirubin 0.2 (0.0-0.5) mg/dL AST 64 H (5-31) U/L ALT 43 H (0-31) U/L Alkaline Phosphatase 55 (39-117) U/L Albumin 3.5 (3.5-5.0) g/dL Assessment and Plan (1) Acute respiratory failure with hypoxia: Problem details: She has acute COVID pneumonia with recent onset within 6 days She has no renal or liver dysfunction She is oxygen dependent Status: Acute Remdesivir per 5 day protocol Oxygen as needed Dexamethasone 10 days,convert to oral when improved Isolation 10 days should be tested (2) Viral sepsis: Status: Acute (3) Pneumonia due to 2019-nCoV: Status: Acute
[2020-05-17] MEDS: Acetaminophen 325 MG TABLET 650 MG PO (13:06)
[2020-05-17] MEDS: Remdesivir 200 MG in 0.9 % Sodium Chloride 210 ML 105 MG IV (14:43)
[2020-05-17 15:24] VITALS: BP 115/57; PULSE 80; RESP 18; TEMP 37.3; O2SAT 92
--- NOTE | 2020-05-17 17:50 | PC.NURSE ---
Patient appearing winded while talking to this RN and reported feeling short of breath; O2 SAT 92%, increased O2 from 3L to 4L with good effect. O2 SATs in the low 90s throughout the rest of the day. Patient reports coughing intermittently and reports 3/10 pain in upper abdomen while coughing; 3/10 pain is tolerable for her. patient reports coughing less frequently throughout the day. Patient started on Remdesivir. Patient spiked low grade temp of 99.2 around 1100; patient reports feeling very hot. PRN Tylenol administered, latest temp 99.0, patient no longer reports feeling hot. Patient had poor intake, consumed about less than 50% of all meals, as she reports not feeling hungry. No further issues, no further complaints offered.
[2020-05-17 19:34] VITALS: BP 100/55; PULSE 84; RESP 16; TEMP 36.7; O2SAT 92
[2020-05-18] VITALS (7 sets, daily range): BP systolic 111–142; BP diastolic 57–73; PULSE 69–88; RESP 16–20; TEMP 36.2–37.4; O2SAT 90–93
[2020-05-18] MEDS: Acetaminophen 325 MG TABLET 650 MG PO (02:25)
[2020-05-18] MEDS: dexAMETHasone sod phosphate 4 MG/ML VIAL 6 MG IVPUSH (08:54)
[2020-05-18] MEDS: 0.9 % Sodium Chloride Flush 3 ML SYRINGE IVFLUSH ×3 (08:54→21:17)
--- NOTE | 2020-05-18 11:05 | P.PNIM_ITS ---
Subjective Subjective Date of Service: 05/18/20 Interval History: diarrhea Cardiovascular Cardiovascular: Reports no additional cardiovascular complaints Genitourinary Genitourinary: Reports no additional female genitourinary complaints Physical Exam Vital Signs: Vital Signs: Last Vital Signs Temp 97.1 F 05/18/20 08:00 Pulse 77 05/18/20 08:00 Resp 20 05/18/20 08:00 BP 111/61 05/18/20 08:00 Pulse Ox 93 05/18/20 08:00 Body Mass Index 25.0 General: AO X 3, no acute distress Resp: CTA bilateral CVS: S1,S2,RRR GI: soft, non tender, non distended Neuro: motor grossly intact Psych: appropriate affect Objective Data Current Medications Generic Name Dose Route Start Last Admin Trade Name Freq PRN Reason Stop Dose Admin Acetaminophen 650 mg 05/16/20 19:19 05/18/20 02:25 Acetaminophen 325 Mg Tablet PO 650 mg Q6H PRN Administration Pain, Mild (Pain Scale 1-3) Dexamethasone Sodium Phosphate 6 mg 05/17/20 09:00 05/18/20 08:54 Dexamethasone Sod Phosphate 4 Mg/Ml Vial IVPUSH 6 mg DAILY [facility] Administration Enoxaparin Sodium 40 mg 05/16/20 19:19 05/17/20 19:23 Enoxaparin Sodium 40 Mg/0.4 Ml Syringe SUBCUT Not Given Q24H [facility] Remdesivir 100 mg/ Sodium 230 mls @ 115 mls/hr 05/18/20 15:00 Chloride IV 05/21/20 16:59 Q24H [facility] Pharmacy Consult 1 each 05/16/20 15:04 Consult Rx Perform Med Rec MISCELLANE ONCE PRN Consult order Sodium Chloride 3 ml 05/17/20 00:00 05/18/20 08:54 0.9 % Sodium Chloride Flush 3 Ml Syringe IVFLUSH 3 ml QSHIFT [facility] Administration Labs CBC & Chem 7: 05/17/20 06:17 05/17/20 06:17 Microbiology Microbiology Results: Microbiology 05/16/20 12:31 Blood - Venous Blood Culture - Preliminary No growth after 24 hours. 05/16/20 12:34 Blood - Venous Blood Culture - Preliminary No growth after 24 hours. Assessment and Plan (1) Viral sepsis: Status: Acute (2) Acute respiratory failure with hypoxia: Problem details: She has acute COVID pneumonia with recent onset within 6 days She has no renal or liver dysfunction She is oxygen dependent Status: Acute (3) Pneumonia due to 2019-nCoV: Status: Acute Assessment and Plan: 49F presented with fever, chills Acute hypoxic respiratory failure and viral sepsis due to COVID pneumonia wean o2 as tolerated Decadron day 3/10 remdisivir day 2/5 antipyretics diarrhea check cdif if negative will give imodium
[2020-05-18 14:26] LABS: CDIFF Ag Negative (Negative); CDiff Toxin Negative (Negative)
[2020-05-18 14:27] LABS: CDIFF Internal ctrl Dots and bkg OK (V)
[2020-05-18] MEDS: Remdesivir 100 MG in 0.9 % Sodium Chloride 230 ML 115 MG IV (15:58)
[2020-05-18] MEDS: Loperamide HCl 2 MG CAPSULE PO (15:58)
[2020-05-19] VITALS (9 sets, daily range): BP systolic 114–156; BP diastolic 61–78; PULSE 61–80; RESP 16–22; TEMP 36.4–37; O2SAT 86–95; BMI 24.9
[2020-05-19 06:46] LABS: Hematocrit 38.6 % (37-47); Hemoglobin 12.8 g/dl (12.0-16.0); Imm Gran Abs Auto 0.05 X10*3/uL (0.00-0.03); Imm Gran Pct Auto 0.8 % (0.0-0.4); Lymphocytes Absolute Auto 0.8 X10*3/uL (1.2-4.9); Lymphocytes Percent Auto 11.9 % (20-40); MANUAL DIFF FLAG SCAN; Mean Corpuscular HGB Conc 33.2 g/dl (31.0-35.0); Mean Corpuscular Volume 90.6 fL (80-98); Mean Platelet Volume 10.4 fL (9.4-12.3); Monocytes Absolute Auto 0.5 X10*3/uL (0.1-1.2); Monocytes Percent Auto 7.1 % (2-11); Neutrophils Absolute Auto 5.3 X10*3/uL (2.0-8.3); Neutrophils Percent Auto 80.2 % (45-73); Platelet Count 226 X10*3/uL (160-400); Red Blood Count 4.26 X10*6/uL (4.20-5.50); Red Cell Distribution Width 13.1 % (11.0-16.0); SCAN SMEAR FLAG 1; White Blood Count 6.7 X10*3/uL (4.8-10.8)
[2020-05-19 06:49] LABS: Alanine Aminotransferase 82 U/L (0-31); Albumin Level 3.1 g/dL (3.5-5.0); Alkaline Phosphatase 49 U/L (39-117); Aspartate Amino Transferase 77 U/L (5-31); Bilirubin Direct 0.2 mg/dL (0.0-0.5); Bilirubin Total 0.3 mg/dL (0.0-1.0); Blood Urea Nitrogen 19 mg/dL (9-16); Creatinine Clr Calc Pharmacy 86.4; Estimated Glomerular Filt Rate > 60; Glucose Fasting 141 mg/dL (60-99); Total Protein 5.5 g/dL (6.5-8.0)
[2020-05-19 07:37] LABS: SLIDE REVIEW VERIFIED
[2020-05-19 07:50] LABS: Anion Gap 13 (12-20); Carbon Dioxide 28 mmol/L (22-29); Chloride 105 mmol/L (96-108); Potassium 4.2 mmol/L (3.3-5.1); Sodium 142 mmol/L (135-145)
[2020-05-19] MEDS: dexAMETHasone sod phosphate 4 MG/ML VIAL 6 MG IVPUSH (08:24)
[2020-05-19] MEDS: 0.9 % Sodium Chloride Flush 3 ML SYRINGE IVFLUSH ×3 (08:25→19:34)
--- NOTE | 2020-05-19 10:37 | P.PNIM_ITS ---
Subjective Subjective Date of Service: 05/19/20 Interval History: Shortness of breath Cardiovascular Cardiovascular: Reports no additional cardiovascular complaints Gastrointestinal Gastrointestinal: Reports no additional gastrointestinal complaints Physical Exam Vital Signs: Vital Signs: Last Vital Signs Temp 98.1 F 05/19/20 08:00 Pulse 73 05/19/20 08:00 Resp 22 H 05/19/20 08:00 BP 137/72 05/19/20 08:00 Pulse Ox 90 L 05/19/20 09:13 Body Mass Index 25.0 General: AO X 3, no acute distress Resp: rhonchi CVS: S1,S2,RRR GI: soft, non tender, non distended Neuro: motor grossly intact Psych: appropriate affect Objective Data Current Medications Generic Name Dose Route Start Last Admin Trade Name Freq PRN Reason Stop Dose Admin Acetaminophen 650 mg 05/16/20 19:19 05/18/20 02:25 Acetaminophen 325 Mg Tablet PO 650 mg Q6H PRN Administration Pain, Mild (Pain Scale 1-3) Dexamethasone Sodium Phosphate 6 mg 05/17/20 09:00 05/19/20 08:24 Dexamethasone Sod Phosphate 4 Mg/Ml Vial IVPUSH 6 mg DAILY [facility] Administration Enoxaparin Sodium 40 mg 05/16/20 19:19 05/18/20 21:34 Enoxaparin Sodium 40 Mg/0.4 Ml Syringe SUBCUT Not Given Q24H [facility] Remdesivir 100 mg/ Sodium 230 mls @ 115 mls/hr 05/18/20 15:00 05/18/20 18:27 Chloride IV 05/21/20 16:59 Infused Q24H [facility] Infusion Loperamide HCl 2 mg 05/18/20 14:52 05/18/20 15:58 Loperamide Hcl 2 Mg Capsule PO 2 mg Q4H PRN Administration diarrhea Pharmacy Consult 1 each 05/16/20 15:04 Consult Rx Perform Med Rec MISCELLANE ONCE PRN Consult order Sodium Chloride 3 ml 05/17/20 00:00 05/19/20 08:25 0.9 % Sodium Chloride Flush 3 Ml Syringe IVFLUSH 3 ml QSHIFT [facility] Administration Labs CBC & Chem 7: 05/19/20 05:37 05/19/20 05:37 Microbiology Microbiology Results: Microbiology 05/16/20 12:31 Blood - Venous Blood Culture - Preliminary No growth after 48 hours. 03/05/21 12:34 Blood - Venous Blood Culture - Preliminary No growth after 48 hours. Assessment and Plan (1) Viral sepsis: Status: Acute (2) Acute respiratory failure with hypoxia: Problem details: She has acute COVID pneumonia with recent onset within 6 days She has no renal or liver dysfunction She is oxygen dependent Status: Acute (3) Pneumonia due to 2019-nCoV: Status: Acute Assessment and Plan: 49F presented with fever, chills Acute hypoxic respiratory failure and viral sepsis due to COVID pneumonia o2 requirements a little higher today continue Decadron day 4/10 remdisivir day 3/5 antipyretics diarrhea negative cdif, resolved with imodium
--- NOTE | 2020-05-19 12:27 | PC.NURSE ---
Pt. A+Ox3, denies pain, but endorses generalized weakness, LS dim bilat, O2 requirements increasing throughout morning, started on 4L NC but sats were dropping into mid-80s, eventually increased to 7L NC by noon to keep sats in low 90s, pt. doesn't appear to be in any respiratory distress, OOB to commode with standby assist, resting in bed, call thomas in reach
--- NOTE | 2020-05-19 12:42 | MHC.CM.PN ---
DP home no services . Pts spouse to provide transportation. CM will follow to assess for change in needs @ DC.
[2020-05-19] MEDS: Remdesivir 100 MG in 0.9 % Sodium Chloride 230 ML 150 MG IV (14:49)
[2020-05-20 03:11] VITALS: BP 140/70; PULSE 67; RESP 18; TEMP 36.5; O2SAT 90
[2020-05-20 06:43] LABS: D Dimer 247 NG/ML
[2020-05-20 06:44] LABS: Basophils Percent Auto 0.1 % (0-2); Hematocrit 40.7 % (37-47); Hemoglobin 13.4 g/dl (12.0-16.0); Imm Gran Abs Auto 0.08 X10*3/uL (0.00-0.03); Imm Gran Pct Auto 1.2 % (0.0-0.4); Lymphocytes Absolute Auto 0.9 X10*3/uL (1.2-4.9); Lymphocytes Percent Auto 12.7 % (20-40); MANUAL DIFF FLAG SCAN; Mean Corpuscular HGB Conc 32.9 g/dl (31.0-35.0); Mean Corpuscular Hemoglobin 29.8 pg (27.0-33.0); Mean Corpuscular Volume 90.6 fL (80-98); Mean Platelet Volume 10.1 fL (9.4-12.3); Monocytes Absolute Auto 0.4 X10*3/uL (0.1-1.2); Monocytes Percent Auto 6.2 % (2-11); Neutrophils Absolute Auto 5.4 X10*3/uL (2.0-8.3); Neutrophils Percent Auto 79.8 % (45-73); Platelet Count 286 X10*3/uL (160-400); Red Blood Count 4.49 X10*6/uL (4.20-5.50); Red Cell Distribution Width 12.6 % (11.0-16.0); SCAN SMEAR FLAG 1; White Blood Count 6.8 X10*3/uL (4.8-10.8)
[2020-05-20 07:04] LABS: Alanine Aminotransferase 111 U/L (0-31); Albumin Level 3.2 g/dL (3.5-5.0); Alkaline Phosphatase 55 U/L (39-117); Anion Gap 14 (12-20); Aspartate Amino Transferase 62 U/L (5-31); Bilirubin Direct 0.2 mg/dL (0.0-0.5); Bilirubin Total 0.4 mg/dL (0.0-1.0); Blood Urea Nitrogen 21 mg/dL (9-16); Calcium 8.2 mg/dL (8.4-10.2); Carbon Dioxide 27 mmol/L (22-29); Chloride 106 mmol/L (96-108); Creatinine Clr Calc Pharmacy 87.7; Estimated Glomerular Filt Rate > 60; Glucose Fasting 124 mg/dL (60-99); Lactate Dehydrogenase 450 U/L (122-220); Potassium 4.3 mmol/L (3.3-5.1); Sodium 143 mmol/L (135-145); Total Protein 5.9 g/dL (6.5-8.0)
[2020-05-20 07:20] VITALS: BP 131/82; PULSE 77; RESP 18; TEMP 36.4; O2SAT 92
[2020-05-20 07:31] LABS: SLIDE REVIEW VERIFIED
[2020-05-20] MEDS: dexAMETHasone sod phosphate 4 MG/ML VIAL 6 MG IVPUSH (08:56)
[2020-05-20] MEDS: 0.9 % Sodium Chloride Flush 3 ML SYRINGE IVFLUSH (08:56)
--- NOTE | 2020-05-20 10:25 | PC.NURSE ---
Pt. A+Ox3, LS dim, SOB with exertion, 6L NC with sats at 94% at rest, OOB to bedside commode, no edema noted, skin CDI, resting in bed, call thomas in reach
[2020-05-20 11:18] VITALS: BP 134/71; PULSE 71; RESP 18; TEMP 36.6; O2SAT 95
--- NOTE | 2020-05-20 11:40 | HO.PM.IMPN ---
Subjective Subjective Date of Service: 05/20/20 Interval History: Seen in f/u for covid related acute hypoxic respiratory failure, remains sob and still on nasal canular at 6 liters and satting 95. No fever since 05/16 Review of Systems Gen: no fever Resp: + sob, no cough CV: no chest, no LONGORIA, no leg edema GI: No n/v, no abd pain Neuro: No confusion Physical Exam Vital Signs: Vital Signs: Last Vital Signs Temp 98 F 05/20/20 11:18 Pulse 71 05/20/20 11:18 Resp 18 05/20/20 11:18 BP 134/71 05/20/20 11:18 Pulse Ox 95 05/20/20 11:18 Body Mass Index 24.9 General: AO X 3, no acute distress Resp: normal respiratory effort, no distressl CVS: S1,S2,RRR GI: +BS, NT, no distention Skin: No rash Neuro: motor grossly intact Psych: appropriate affect Objective Data Current Medications Generic Name Dose Route Start Last Admin Trade Name Freq PRN Reason Stop Dose Admin Acetaminophen 650 mg 05/16/20 19:19 05/18/20 02:25 Acetaminophen 325 Mg Tablet PO 650 mg Q6H PRN Administration Pain, Mild (Pain Scale 1-3) Dexamethasone Sodium Phosphate 6 mg 05/17/20 09:00 05/20/20 08:56 Dexamethasone Sod Phosphate 4 Mg/Ml Vial IVPUSH 6 mg DAILY [facility] Administration Enoxaparin Sodium 40 mg 05/16/20 19:19 05/19/20 19:34 Enoxaparin Sodium 40 Mg/0.4 Ml Syringe SUBCUT Not Given Q24H [facility] Remdesivir 100 mg/ Sodium 230 mls @ 115 mls/hr 05/18/20 15:00 05/19/20 16:44 Chloride IV 05/21/20 16:59 Infused Q24H [facility] Infusion Loperamide HCl 2 mg 05/18/20 14:52 05/18/20 15:58 Loperamide Hcl 2 Mg Capsule PO 2 mg Q4H PRN Administration diarrhea Pharmacy Consult 1 each 05/16/20 15:04 Consult Rx Perform Med Rec MISCELLANE ONCE PRN Consult order Sodium Chloride 3 ml 05/17/20 00:00 05/20/20 08:56 0.9 % Sodium Chloride Flush 3 Ml Syringe IVFLUSH 3 ml QSHIFT [facility] Administration Labs CBC & Chem 7: 05/20/20 05:29 05/20/20 05:29 Microbiology Microbiology Results: Microbiology 05/16/20 12:31 Blood - Venous Blood Culture - Preliminary No growth after 48 hours. 05/16/20 12:34 Blood - Venous Blood Culture - Preliminary No growth after 48 hours. Assessment and Plan (1) Viral sepsis: Status: Acute (2) Acute respiratory failure with hypoxia: Problem details: She has acute COVID pneumonia with recent onset within 6 days She has no renal or liver dysfunction She is oxygen dependent Status: Acute (3) Pneumonia due to 2019-nCoV: Status: Acute Assessment and Plan: 49/F with acute hypoxic resp failure d/t covid 19 PNA Acute hypoxic respiratory failure and viral sepsis due to COVID pneumonia Continue oxygen, wean as rosa isela Decadron day 5/10 remdisivir day 4/5 antipyretics PRN for fever diarrhea negative cdif, resolved with imodium out of bed, ambulate or to chair
[2020-05-20] MEDS: Remdesivir 100 MG in 0.9 % Sodium Chloride 230 ML 150 MG IV (15:08)
[2020-05-20 15:34] VITALS: BP 141/75; PULSE 72; RESP 18; TEMP 36.3; O2SAT 89
[2020-05-20 16:20] VITALS: O2SAT 96
[2020-05-20 19:10] VITALS: BP 145/78; PULSE 70; RESP 18; TEMP 36.2; O2SAT 95
[2020-05-21] VITALS (9 sets, daily range): BP systolic 122–146; BP diastolic 60–82; PULSE 51–83; RESP 18–20; TEMP 36.3–36.7; O2SAT 90–97
[2020-05-21] MEDS: 0.9 % Sodium Chloride Flush 3 ML SYRINGE IVFLUSH ×2 (00:11→08:32)
[2020-05-21] MEDS: dexAMETHasone sod phosphate 4 MG/ML VIAL 6 MG IVPUSH (08:31)
--- NOTE | 2020-05-21 09:25 | HO.PM.IMPN ---
Subjective Subjective Date of Service: 05/21/20 Interval History: Seen in f/u for covid related acute hypoxic respiratory failure, remains sob and still on nasal canular at 6 liters and satting 97, now 91 on 3 liters. No fever since 05/16 Review of Systems Gen: no fever Resp: + sob, no cough CV: no chest, no LONGORIA, no leg edema GI: No n/v, no abd pain Neuro: No confusion Physical Exam Vital Signs: Vital Signs: Last Vital Signs Temp 97.8 F 05/21/20 07:16 Pulse 74 05/21/20 07:16 Resp 18 05/21/20 07:16 BP 122/61 05/21/20 07:16 Pulse Ox 97 05/21/20 07:16 Body Mass Index 24.9 General: AO X 3, no acute distress Resp: Normal respiratory effort, no respiratory distress. CVS: S1,S2,RRR GI: +BS, NT, no distention Skin: No rash Neuro: motor grossly intact Psych: appropriate affect Objective Data Current Medications Generic Name Dose Route Start Last Admin Trade Name Coreyq PRN Reason Stop Dose Admin Acetaminophen 650 mg 05/16/20 19:19 05/18/20 02:25 Acetaminophen 325 Mg Tablet PO 650 mg Q6H PRN Administration Pain, Mild (Pain Scale 1-3) Dexamethasone Sodium Phosphate 6 mg 05/17/20 09:00 05/21/20 08:31 Dexamethasone Sod Phosphate 4 Mg/Ml Vial IVPUSH 6 mg DAILY [facility] Administration Enoxaparin Sodium 40 mg 05/16/20 19:19 05/20/20 19:54 Enoxaparin Sodium 40 Mg/0.4 Ml Syringe SUBCUT Not Given Q24H [facility] Remdesivir 100 mg/ Sodium 230 mls @ 115 mls/hr 05/18/20 15:00 05/20/20 18:09 Chloride IV 05/21/20 16:59 Infused Q24H [facility] Infusion Loperamide HCl 2 mg 05/18/20 14:52 05/18/20 15:58 Loperamide Hcl 2 Mg Capsule PO 2 mg Q4H PRN Administration diarrhea Pharmacy Consult 1 each 05/16/20 15:04 Consult Rx Perform Med Rec MISCELLANE ONCE PRN Consult order Sodium Chloride 3 ml 05/17/20 00:00 05/21/20 08:32 0.9 % Sodium Chloride Flush 3 Ml Syringe IVFLUSH 3 ml QSHIFT [facility] Administration Labs CBC & Chem 7: 05/20/20 05:29 05/20/20 05:29 Microbiology Microbiology Results: Microbiology 05/16/20 12:31 Blood - Venous Blood Culture - Preliminary No growth after 48 hours. 05/16/20 12:34 Blood - Venous Blood Culture - Preliminary No growth after 48 hours. Assessment and Plan (1) Viral sepsis: Status: Acute (2) Acute respiratory failure with hypoxia: Problem details: She has acute COVID pneumonia with recent onset within 6 days She has no renal or liver dysfunction She is oxygen dependent Status: Acute (3) Pneumonia due to 2019-nCoV: Status: Acute Assessment and Plan: 49/F with acute hypoxic resp failure d/t covid 19 PNA Acute hypoxic respiratory failure and viral sepsis due to COVID pneumonia Continue oxygen, wean as rosa isela Decadron day 6/10 remdisivir day 5/5 antipyretics PRN for fever diarrhea negative cdif, resolved with imodium out of bed, ambulate or to chair
--- NOTE | 2020-05-21 11:48 | MHC.CM.PN ---
Patient is still requiring O2 at 6 liters per minute via NC. Also continues on IV Dexamethasone and IV Remdesivir. Plan is to wean off o2 and discharge home no services. will provide transport. CM will continue to follow patient for discharge needs.
[2020-05-21] MEDS: Remdesivir 100 MG in 0.9 % Sodium Chloride 230 ML 150 MG IV (15:53)
[2020-05-22] MEDS: 0.9 % Sodium Chloride Flush 3 ML SYRINGE IVFLUSH ×4 (00:13→21:49)
[2020-05-22 03:41] VITALS: BP 134/65; PULSE 78; RESP 18; TEMP 37; O2SAT 98
[2020-05-22 07:18] VITALS: BP 122/70; PULSE 75; RESP 18; TEMP 36.2; O2SAT 92
--- NOTE | 2020-05-22 07:42 | PC.NURSE ---
pt has been refusing her lovenox. discussed increased risk of blood clots with covid, pt states she is more willing to have the injection. Will reapproach when med due.
[2020-05-22] MEDS: dexAMETHasone sod phosphate 4 MG/ML VIAL 6 MG IVPUSH (09:06)
[2020-05-22 11:04] VITALS: BP 134/79; PULSE 84; RESP 18; TEMP 36.8; O2SAT 92
--- NOTE | 2020-05-22 11:16 | HO.PM.IMPN ---
Subjective Subjective Date of Service: 05/22/20 Interval History: Seen in f/u for covid related acute hypoxic respiratory failure, still has some malaise, some headache but no fever, oxygen down to 1 L by nasal cannula Review of Systems Gen: no fever Resp: + sob, no cough CV: no chest, no LONGORIA, no leg edema GI: No n/v, no abd pain Neuro: No confusion Physical Exam Vital Signs: Vital Signs: Last Vital Signs Temp 98.3 F 05/22/20 11:04 Pulse 84 05/22/20 11:04 Resp 18 05/22/20 11:04 BP 134/79 05/22/20 11:04 Pulse Ox 92 05/22/20 11:04 Body Mass Index 24.9 Const: Other: General: AO X 3, no acute distress Resp: Normal respiratory effort, no respiratory distress. CVS: S1,S2,RRR GI: +BS, NT, no distention Skin: No rash Neuro: motor grossly intact Psych: appropriate affect Objective Data Current Medications Generic Name Dose Route Start Last Admin Trade Name Freq PRN Reason Stop Dose Admin Acetaminophen 650 mg 05/16/20 19:19 05/18/20 02:25 Acetaminophen 325 Mg Tablet PO 650 mg Q6H PRN Administration Pain, Mild (Pain Scale 1-3) Dexamethasone Sodium Phosphate 6 mg 05/17/20 09:00 05/22/20 09:06 Dexamethasone Sod Phosphate 4 Mg/Ml Vial IVPUSH 6 mg DAILY [facility] Administration Enoxaparin Sodium 40 mg 05/16/20 19:19 05/21/20 20:52 Enoxaparin Sodium 40 Mg/0.4 Ml Syringe SUBCUT Not Given Q24H [facility] Loperamide HCl 2 mg 05/18/20 14:52 05/18/20 15:58 Loperamide Hcl 2 Mg Capsule PO 2 mg Q4H PRN Administration diarrhea Pharmacy Consult 1 each 05/16/20 15:04 Consult Rx Perform Med Rec MISCELLANE ONCE PRN Consult order Sodium Chloride 3 ml 05/17/20 00:00 05/22/20 07:36 0.9 % Sodium Chloride Flush 3 Ml Syringe IVFLUSH 3 ml QSHIFT [facility] Administration Labs CBC & Chem 7: 05/20/20 05:29 05/20/20 05:29 Microbiology Microbiology Results: Microbiology 05/16/20 12:31 Blood - Venous Blood Culture - Final No growth after 5 days. 05/16/20 12:34 Blood - Venous Blood Culture - Final No growth after 5 days. Assessment and Plan (1) Viral sepsis: Status: Acute (2) Acute respiratory failure with hypoxia: Problem details: She has acute COVID pneumonia with recent onset within 6 days She has no renal or liver dysfunction She is oxygen dependent Status: Acute (3) Pneumonia due to 2019-nCoV: Status: Acute Assessment and Plan: 49/F with acute hypoxic resp failure d/t covid 19 PNA Acute hypoxic respiratory failure and viral sepsis due to COVID pneumonia Continue oxygen, wean oxygen down to room air Decadron day 09/20 remdisivir completed 5 day couse on 05/21/20 antipyretics PRN for fever diarrhea negative cdif, resolved with imodium out of bed, ambulate or to chair home later today if not tomorrow, if succesfully wean down to room air
--- NOTE | 2020-05-22 11:33 | PM.DS ---
DS: Providers Provider Date of Service: 07/12/20 Date of admission: 05/16/20 16:52 Primary care physician: Clemente Gallegos MD Consults: 05/16/20 19:19 Consult to Infectious Diseases Routine Consulting Provider: Gabrielle Cameron Reason for consultation: covid DS: Diagnosis Discharge Diagnosis (1) Viral sepsis: Status: Resolved (2) Acute respiratory failure with hypoxia: Status: Resolved Problem details: She has acute COVID pneumonia with recent onset within 6 days She has no renal or liver dysfunction She is oxygen dependent (3) Pneumonia due to 2019-nCoV: Status: Resolved DS: Medications Discharge Medications Home Medications: Home Medications Medication Instructions Recorded Confirmed No Known Home Meds 05/16/20 05/16/20 DS: Summary Hospital Course Hospital Course: Date of admission: 05/16/20 Chief Complaint: Shortness of breath, fever and chills 49F presented with fever, chills. Patient was diagnosed with COVID on 05/12/2020. She 1st started having symptoms about a week prior to that. She was exposed to positive family members. She may feeling fatigued, fever, chills, body aches, lightheaded, anosmia, cough. She was getting much worse today so she decided to come to the ED. in the ED noted to have hypoxia, 89% on room air. CT chest showed bilateral opacities. Hospital cousrse: Patient was admitted due to hypoxia related to covid 19. Management consisted of Remdesevir for 5 days, Dexamathasone so far day 9. She required oxygen up to 6 liters and has been succesfully weaned off to room air now. At this point she has taken enough corticosteroid, she is expected to make full recovery Time Spent with Patient Time attestation: Total time spent providing and/or coordinating discharge services: Discharge coordination time: Greater than 30 minutes Physical Exam Vital Signs: Vital Signs: Body Mass Index 24.9 Const: Other: General: AO X 3, no acute distress Resp: Normal respiratory effort, no respiratory distress. CVS: S1,S2,RRR GI: +BS, NT, no distention Skin: No rash Neuro: motor grossly intact Psych: appropriate affect Discharge Plan Discharge Anticipated Discharge Date/Time: 05/22/20 11:28 Patient Disposition: Home, Self-Care Discharge Diagnosis: covid 19 Referrals: Clemente Gallegos MD [Primary Care Provider] - Discharge Medications: No Action No Known Home Meds RF: 0 Discharge Orders: Discharge Order (Routine); Ordered 05/24/20 Ordered By: Ruben Santana Diet: advance to usual diet Activity on Discharge: As tolerated Stand Alone Forms: Patient Portal Discharge page Care Plan Goals: full recovery from covid 19 Health Concerns: covid 19 Plan of Treatment: Complete self islation, finsish taking Dexamethasone CDC Guidelines for home isolation: - Stay away from others - Limit contact with pets and animals: If you must care for a pet, wash your hands before and after interacting with them - Wear a mask if you are sick - Cover your mouth and nose with a tissue when you cough or sneeze. Dispose of tissues in a lined trash can and wash your hands immediately with soap and water for at least 20 seconds. If soap and water are not available, clean hands with alcohol-based hand manager investment that contains at least 60% alcohol. - Clean your hands often with soap and water for at least 20 seconds - Avoid touching your eyes, nose and mouth with unwashed hands - Do not share dishes, drinking glasses, cups, eating utensils, towels, or bedding with other people in your home. After using these items, wash them thoroughly with soap and water or put in the clinical research nurse. - Clean high-touch surfaces in your isolation area (?sick room? and bathroom) every day; let a caregiver clean and disinfect high-touch surfaces in other areas of the home. Clean the area or item with soap and water or another detergent if it is dirty. Then, use a household disinfectant. Seek medical attention, but call first: - Seek medical care right away if your illness is worsening (for example, if you have difficulty breathing). - Call your doctor before going in: Before going to the doctor?s office or emergency room, call ahead and tell them your symptoms. They will tell you what to do. - If possible, put on a facemask before you enter the building. If you can?t put on a facemask, try to keep a safe distance from other people (at least 6 feet away). This will help protect the people in the office or waiting room. - Follow care instructions from your healthcare provider and local health department: Your local health authorities will give instructions on checking your symptoms and reporting information. Emergency warning signs for COVID-19: - Difficulty breathing or shortness of breath - Persistent pain or pressure in the chest - New confusion or inability to arouse - Bluish lips or face Additional Instructions: - [] Assessment: covid Discharge Date/Time: 05/24/20 15:18
--- NOTE | 2020-05-22 14:10 | PC.NURSE ---
pt had oxygen saturaions of 95-98% on 1L oxygen, oxygen was turned off and pt tolerated well but would have low sats with ambulation to bathroom. Pt recovered well with rest. This afternoon resting oxygen saturation was 88-90, pt was placed back on 1L NC and has oxygen saturation of 90-92%. She has been using the incentive spirometer hourly and has also been ambulating in room. Pt reports fatigue and has taken naps. Will continue to monitor
[2020-05-22 15:35] VITALS: BP 141/74; PULSE 88; RESP 18; TEMP 36.7; O2SAT 93
--- NOTE | 2020-05-22 18:30 | PC.NURSE ---
pt has had oxygen saturation of 88-89% on 1L NC. increased to 2L. aware.
[2020-05-22 19:00] VITALS: BMI 24.4
[2020-05-22 19:20] VITALS: BP 110/59; PULSE 70; RESP 18; TEMP 36.6; O2SAT 94
[2020-05-22] MEDS: Enoxaparin Sodium 40 MG/0.4 ML SYRINGE SUBCUT (21:49)
[2020-05-22 23:20] VITALS: BP 113/56; PULSE 51; RESP 20; TEMP 36; O2SAT 97
[2020-05-23 04:00] VITALS: BP 115/62; PULSE 69; RESP 18; TEMP 36.8
[2020-05-23 07:24] VITALS: BP 135/84; PULSE 83; RESP 18; TEMP 36.2; O2SAT 97
--- NOTE | 2020-05-23 07:25 | PC.NURSE ---
pt complaining of right calf pain, worse with ambulation. No redness or swelling present. Notified
[2020-05-23] MEDS: 0.9 % Sodium Chloride Flush 3 ML SYRINGE IVFLUSH ×3 (07:33→19:44)
[2020-05-23] MEDS: dexAMETHasone sod phosphate 4 MG/ML VIAL 6 MG IVPUSH (09:22)
[2020-05-23 12:00] VITALS: BP 133/78; PULSE 85; RESP 16; TEMP 36.9; O2SAT 91
--- NOTE | 2020-05-23 15:24 | HO.PM.IMPN ---
Subjective Subjective Date of Service: 05/23/20 Interval History: Seen in f/u for covid related acute hypoxic respiratory failure, still has some malaise, seems better. Negatove PE and DVT Review of Systems Gen: no fever Resp: + sob, no cough CV: no chest, no LONGORIA, no leg edema GI: No n/v, no abd pain Neuro: No confusion Physical Exam Vital Signs: Vital Signs: Last Vital Signs Temp 98.5 F 05/23/20 12:00 Pulse 85 05/23/20 12:00 Resp 16 05/23/20 12:00 BP 133/78 05/23/20 12:00 Pulse Ox 91 L 05/23/20 12:00 Body Mass Index 24.4 Const: Other: General: AO X 3, no acute distress Resp: Normal respiratory effort, no respiratory distress. CVS: S1,S2,RRR GI: +BS, NT, no distention Skin: No rash Neuro: motor grossly intact Psych: appropriate affect Objective Data Current Medications Generic Name Dose Route Start Last Admin Trade Name Coreyq PRN Reason Stop Dose Admin Acetaminophen 650 mg 05/16/20 19:19 05/18/20 02:25 Acetaminophen 325 Mg Tablet PO 650 mg Q6H PRN Administration Pain, Mild (Pain Scale 1-3) Dexamethasone Sodium Phosphate 6 mg 05/17/20 09:00 05/23/20 09:22 Dexamethasone Sod Phosphate 4 Mg/Ml Vial IVPUSH 6 mg DAILY LUPE Administration Enoxaparin Sodium 40 mg 05/16/20 19:19 05/22/20 21:49 Enoxaparin Sodium 40 Mg/0.4 Ml Syringe SUBCUT 40 mg Q24H LUPE Administration Loperamide HCl 2 mg 05/18/20 14:52 05/18/20 15:58 Loperamide Hcl 2 Mg Capsule PO 2 mg Q4H PRN Administration diarrhea Pharmacy Consult 1 each 05/16/20 15:04 Consult Rx Perform Med Rec MISCELLANE ONCE PRN Consult order Sodium Chloride 3 ml 05/17/20 00:00 05/23/20 07:33 0.9 % Sodium Chloride Flush 3 Ml Syringe IVFLUSH 3 ml QSHIFT LUPE Administration Labs CBC & Chem 7: 05/20/20 05:29 05/20/20 05:29 Microbiology Microbiology Results: Microbiology 05/16/20 12:31 Blood - Venous Blood Culture - Final No growth after 5 days. 05/16/20 12:34 Blood - Venous Blood Culture - Final No growth after 5 days. Assessment and Plan (1) Viral sepsis: Status: Acute (2) Acute respiratory failure with hypoxia: Problem details: She has acute COVID pneumonia with recent onset within 6 days She has no renal or liver dysfunction She is oxygen dependent Status: Acute (3) Pneumonia due to 2019-nCoV: Status: Acute Assessment and Plan: 49/F with acute hypoxic resp failure d/t covid 19 PNA Acute hypoxic respiratory failure and viral sepsis due to COVID pneumonia Continue oxygen, wean oxygen down to room air Decadron day 09/20 remdisivir completed 5 day couse on 05/21/20 antipyretics PRN for fever negative PE and DVT by CTA and US of the leg diarrhea negative cdif, resolved with imodium out of bed, ambulate or to chair home later today if not tomorrow, if succesfully wean down to room air
[2020-05-23 15:49] VITALS: BP 125/66; RESP 78; O2SAT 96
[2020-05-23] MEDS: Enoxaparin Sodium 40 MG/0.4 ML SYRINGE SUBCUT (19:42)
[2020-05-23 20:00] VITALS: BP 149/86; PULSE 79; RESP 16; TEMP 36.3; O2SAT 92
[2020-05-24] VITALS: BP 115/60; PULSE 94; RESP 16; TEMP 36.6; O2SAT 94
--- NOTE | 2020-05-24 | ECG_ITS ---
Test Reason : Tachycardia Blood Pressure : / mmHG Vent. Rate : 082 BPM Atrial Rate : 082 BPM P-R Int : 116 ms QRS Dur : 084 ms QT Int : 372 ms P-R-T Axes : 041 -03 056 degrees QTc Int : 434 ms Normal sinus rhythm Possible Left atrial enlargement Borderline ECG When compared to the previous EKG of ST-T changes have normalzied in the lateral leads Referred By: Ruben Santana Electronically Signed By:Sampson Paulino
[2020-05-24 04:00] VITALS: BP 136/75; PULSE 74; RESP 16; TEMP 36.4; O2SAT 94
[2020-05-24 08:00] VITALS: BP 152/88; PULSE 118; RESP 20; TEMP 36.2; O2SAT 94
[2020-05-24] MEDS: 0.9 % Sodium Chloride Flush 3 ML SYRINGE IVFLUSH (08:16)
[2020-05-24] MEDS: dexAMETHasone sod phosphate 4 MG/ML VIAL 6 MG IVPUSH (08:16)
--- NOTE | 2020-05-24 09:04 | HO.PM.IMPN ---
Subjective Subjective Date of Service: 05/24/20 Interval History: Seen in f/u for covid related acute hypoxic respiratory failure, she is better, O2 sat is 94 on room air this morning Review of Systems Gen: no fever Resp: + sob, no cough CV: no chest, no LONGORIA, no leg edema GI: No n/v, no abd pain Neuro: No confusion Physical Exam Vital Signs: Vital Signs: Last Vital Signs Temp 97.1 F 05/24/20 08:00 Pulse 118 H 05/24/20 08:00 Resp 20 05/24/20 08:00 BP 152/88 H 05/24/20 08:00 Pulse Ox 94 05/24/20 08:00 Body Mass Index 24.4 Const: Other: General: AO X 3, no acute distress Resp: Normal respiratory effort, no respiratory distress. CVS: S1,S2,RRR GI: +BS, NT, no distention Skin: No rash Neuro: motor grossly intact Psych: appropriate affect Objective Data Current Medications Generic Name Dose Route Start Last Admin Trade Name Coreyq PRN Reason Stop Dose Admin Acetaminophen 650 mg 05/16/20 19:19 05/18/20 02:25 Acetaminophen 325 Mg Tablet PO 650 mg Q6H PRN Administration Pain, Mild (Pain Scale 1-3) Dexamethasone Sodium Phosphate 6 mg 05/17/20 09:00 05/24/20 08:16 Dexamethasone Sod Phosphate 4 Mg/Ml Vial IVPUSH 6 mg DAILY LUPE Administration Enoxaparin Sodium 40 mg 05/16/20 19:19 05/23/20 19:42 Enoxaparin Sodium 40 Mg/0.4 Ml Syringe SUBCUT 40 mg Q24H LUPE Administration Loperamide HCl 2 mg 05/18/20 14:52 05/18/20 15:58 Loperamide Hcl 2 Mg Capsule PO 2 mg Q4H PRN Administration diarrhea Pharmacy Consult 1 each 05/16/20 15:04 Consult Rx Perform Med Rec MISCELLANE ONCE PRN Consult order Sodium Chloride 3 ml 05/17/20 00:00 05/24/20 08:16 0.9 % Sodium Chloride Flush 3 Ml Syringe IVFLUSH 3 ml QSHIFT LUPE Administration Labs CBC & Chem 7: 05/20/20 05:29 05/20/20 05:29 Microbiology Microbiology Results: Microbiology 05/16/20 12:31 Blood - Venous Blood Culture - Final No growth after 5 days. 03/05/21 12:34 Blood - Venous Blood Culture - Final No growth after 5 days. Assessment and Plan (1) Viral sepsis: Status: Acute (2) Acute respiratory failure with hypoxia: Problem details: She has acute COVID pneumonia with recent onset within 6 days She has no renal or liver dysfunction She is oxygen dependent Status: Acute (3) Pneumonia due to 2019-nCoV: Status: Acute Assessment and Plan: 49/F with acute hypoxic resp failure d/t covid 19 PNA Acute hypoxic respiratory failure and viral sepsis due to COVID pneumonia She has been successfully weaned to room air Decadron day 09/20 remdisivir completed 5 day couse on 05/21/20 antipyretics PRN for fever negative PE and DVT by CTA and US of the leg diarrhea negative cdif, resolved with imodium out of bed, ambulate or to chair Discharge home later today
[2020-05-24 12:00] VITALS: BP 122/72; PULSE 86; RESP 18; TEMP 36.3; O2SAT 93
--- NOTE | 2020-05-24 14:32 | MHC.CM.PN ---
pt will DC home today with no services.
== END 2020-05-24 15:18 | disposition home or self-care (01) | DRG 871 ==
LOC: HO.ED 16:23 → HO.EDOVER 17:02 → HO.IMC 17:03
PROVIDERS: Physician Assistant; Admitting Provider Internal Medicine; Emergency Provider Emergency Medicine; PCP Internal Medicine; Visit Provider Internal Medicine
DX: A41.89 Other specified sepsis (principal); U07.1 COVID-19; J12.82 Pneumonia due to coronavirus disease 2019; J96.01 Acute respiratory failure with hypoxia; R19.7 Diarrhea, unspecified; Z87.442 Personal history of urinary calculi; F17.210 Nicotine dependence, cigarettes, uncomplicated; Z71.6 Tobacco abuse counseling
CPT/HCPCS: 11104; 36415; 71045; 71275; 80048; 80076; 82728; 83605; 83615; 83735; 83880; 84145; 84484; 85025; 85379; 85610; 85730; 87040; 87324; 87449; 93005; 93970; 94640; 94664; 96361; 96365; 96366; 96368; 96375; 99285; J0456; J0696; J1100; J1650; J3490; Q9967

== ENCOUNTER 2020-06-18 10:56 | Outpatient (REF) | payer OTHER, SELFPAY ==
--- NOTE | ~2020-06-18 | XR_ITS ---
EXAMINATION: XR CHEST CLINICAL INFORMATION: Covid pneumonia COMPARISON: 05/16/2020 TECHNIQUE: 2 views of the chest were obtained. FINDINGS: The lungs are well expanded. Patchy bilateral airspace opacities are present. Partial improvement of the right midlung opacities when compared to prior. There is increased streaky opacity at the periphery of the left midlung when compared to prior. No pleural effusion or pneumothorax. The cardiomediastinal silhouette is unchanged. XR/XR chest 2V IMPRESSION: Patchy bilateral airspace opacities are present consistent with the history of Covid pneumonia. Partial improvement at the right midlung compared to prior. Increased peripheral reticulation at the left midlung.
== END 2020-06-18 10:57 | disposition home or self-care (01) ==
LOC: HO.XRAY 10:56
PROVIDERS: PCP Internal Medicine; Visit Provider Internal Medicine
DX: U07.1 COVID-19 (principal)
CPT/HCPCS: 71046

== ENCOUNTER 2020-07-14 15:53 | Outpatient (REF) | payer OTHER, SELFPAY ==
--- NOTE | ~2020-07-14 | XR_ITS ---
EXAMINATION: XR CHEST CLINICAL INFORMATION: Status post COVID pneumonia COMPARISON: Chest radiographs 06/18/2020, 05/16/2020 TECHNIQUE: 2 views of the chest were obtained. FINDINGS: The bilateral airspace opacities are decreased. There are some residual opacities left lower zone and right infrahilar region. No confluent lobar segmental airspace consolidation or effusion. No new pulmonary opacities. The costophrenic sulci are clear. The heart is normal in size. The hilar and mediastinal contours and bony structures are unremarkable. XR/XR chest 2V IMPRESSION: Continued decrease in bilateral airspace opacities. No effusion.
== END 2020-07-14 15:54 | disposition home or self-care (01) ==
LOC: HO.XRAY 15:53
PROVIDERS: PCP Internal Medicine; Visit Provider Internal Medicine
DX: Z86.16 Personal history of COVID-19 (principal)
CPT/HCPCS: 71046

== ENCOUNTER → 2020-07-17 14:00 | Outpatient (REF) | payer OTHER, SELFPAY | LOC: HO.SL 14:00 | PROVIDERS: PCP Internal Medicine; Visit Provider Internal Medicine | DX: R06.83 Snoring (principal); F51.11 Primary hypersomnia | CPT/HCPCS: 95806 ==

== ENCOUNTER 2024-10-18 03:23 | Emergency (ER) | payer OTHER, SELFPAY ==
--- NOTE | ~2024-10-18 | CT_ITS ---
EXAMINATION: CT ABDOMEN PELVIS WITHOUT IV CONTRAST HISTORY: right flank pain, hematuria COMPARISON: Comparison is made with the prior examination dated 11/29/2014. TECHNIQUE: CT scan of the abdomen and pelvis was performed without contrast using standard departmental protocol. Coronal and sagittal reformatted images were generated and reviewed. Oral contrast material was not administered per department protocol. This CT exam was performed with one or more of the following dose reduction techniques: automated exposure control, adjustment of the mA and/or kV according to patient size, use of iterative reconstruction technique. DLP: 482 mGy-cm FINDINGS: LOWER CHEST: There is subsegmental atelectasis versus scarring at both lung bases. There is no pleural effusion. CARDIOVASCULATURE: The heart is normal in size. There is no pericardial effusion. LIVER: The liver is normal in size and contour. The liver has an unremarkable unenhanced appearance. GALLBLADDER / BILE DUCTS: The gallbladder is unremarkable. There is no intra or extrahepatic biliary ductal dilatation. SPLEEN: The spleen is normal in size and has an unremarkable unenhanced appearance. PANCREAS: The pancreas has an unremarkable unenhanced appearance. ADRENAL GLANDS: Unremarkable. KIDNEYS/RETROPERITONEUM: No renal calculi are identified. There is severe right hydroureteronephrosis to the level of a 6 mm UVJ calculus. 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 There is no left hydronephrosis. LYMPH NODES: No retroperitoneal lymphadenopathy is identified in the abdomen or pelvis. VASCULATURE: The abdominal aorta is normal in caliber. MESENTERY/PERITONEUM: No free fluid. No masses. There is no free intraperitoneal gas. STOMACH: The stomach is collapsed, limiting evaluation. SMALL BOWEL: The small bowel is normal in caliber. COLON: The colon is unremarkable. APPENDIX: Normal. URINARY BLADDER/PELVIC ORGANS: The urinary bladder is unremarkable. The uterus has an unremarkable unenhanced appearance. BONES / SOFT TISSUES: The patient is status post left total hip arthroplasty. There are findings of avascular necrosis involving the right femoral head. CT/CT abdomen pelvis wo IV con IMPRESSION: 1. Severe right hydroureteronephrosis to the level of a 6 mm UVJ calculus. 2. Avascular necrosis of the right hip. Electronically signed by: Isak Perry MD 10/18/2024 09:08 AM EDT RP
[2024-10-18 03:29] VITALS: BP 152/69; PULSE 72; RESP 18; TEMP 35.7; O2SAT 97; BMI 24.6
[2024-10-18 03:42] LABS: MANUAL DIFF FLAG NO
[2024-10-18 03:43] LABS: Hematocrit 39.9 % (37.0-47.0); Hemoglobin 14.2 g/dl (12.0-16.0); Imm Gran Abs Auto 0.04 X10*3/uL (0.00-0.03); Imm Gran Pct Auto 0.3 % (0.0-0.4); Lymphocytes Absolute Auto 2.8 X10*3/uL (1.2-4.9); Mean Corpuscular HGB Conc 35.6 g/dl (31.0-35.0); Mean Corpuscular Hemoglobin 30.6 pg (27.0-33.0); Mean Corpuscular Volume 86.0 fL (80.0-98.0); NRBC Abs Auto 0.000 X10*3/uL (0.0-0.012); NRBC Pct Auto 0.0 /100WBC (0.0-0.2); Platelet Count 290 X10*3/uL (160-400); Red Blood Count 4.64 X10*6/uL (4.20-5.50); White Blood Count 12.3 X10*3/uL (4.8-10.8)
[2024-10-18 03:58] LABS: Anion Gap 15 (12-20); Blood Urea Nitrogen 26 mg/dL (9-16); Calcium 9.3 mg/dL (8.4-10.2); Carbon Dioxide 23 mmol/L (22-29); Chloride 107 mmol/L (96-108); Creatinine Clr Calc Pharmacy 60.9; Estimated Glomerular Filt Rate > 60; Potassium 3.7 mmol/L (3.3-5.1); Sodium 141 mmol/L (135-145)
[2024-10-18 05:30] VITALS: BP 140/64; PULSE 73; RESP 16; TEMP 36.5; O2SAT 98
[2024-10-18 05:39] VITALS: BP 140/64; PULSE 73; RESP 16; TEMP 36.5; O2SAT 98
--- NOTE | 2024-10-18 05:43 | PC.NURSE ---
pt presents with R sided abdominal pain, started at 1 am followed by nausea and diarrhea. denies anyone sick at home, no fever in triage. abd pain rated as a 10/10, denies SOB and respirations are even and unlabored.
--- OUTSIDE RECORDS SUMMARY | 2024-10-18 06:12 | XMS_ITS | Clinical Summary ---
Author Organization [facility] Address [address] [place] [id number] Phone Care Team Providers Care Appraisal Technician Name Role Phone Clemente Gallegos MD Primary Care Provider Allergies No known active allergies Medications bacitracin 500 unit/gram ointment Apply topically 2 (two) times a day. 15 g 9 Active Immunizations Immunization Administration Dates Next Due Tdap 09/17/2018 Social History Tobacco Use Types Packs/Day Years Used Date Smoking Tobacco: Never Smokeless Tobacco: Never Alcohol Use Standard Drinks/Week Comments Yes 0 (1 standard drink = 0.6 oz pur e alcohol) Education Answer Date Recorded Are you interested in more education? Not on britney e 07/09/2022 Are you concerned about learning? Not on file 07/09/2022 No 07/09/2022 No 07/09/2022 Digital Access Answer Date Recorded No 08/09/2022 No 08/09/2022 No 08/09/2022 Reliable internet access at home? Not on file 08/09/2022 Device with a working camera? Not on file Comments No Sex and Gender Information Value Date Recorded Sex Assigned at Female 09/17/2018 6:17 PM EDT Legal Sex Female 9:35 PM EDT Gender Identity Female 09/17/2018 6:17 PM EDT Sexual Orientation Straight 09/17/2018 6: 17 PM EDT Last Filed Vital Signs Vital Sign Reading Time Taken Comments Blood Pressure 164/67 09/17/2018 6:19 PM EDT Pulse 80 09/17/2018 6:19 PM EDT Temperature 36.7 C (98 F) 09/17/2018 6:19 PM EDT Respiratory Rate 24 09/17/2018 6:19 PM EDT Oxygen Saturation 99% 09/17/2018 6:19 PM EDT Inhaled Oxygen Concentration - - Weight 63.5 kg (140 lb) 09/17/2018 6:19 PM EDT Height 165.1 cm (5' 5 ) 09/17/2018 6:19 PM EDT Body Mass Index 23.3 09/17/2018 6:19 PM EDT Plan of Treatment Health Maintenance Due Date Last Done Comments LIPID PANEL 1969 DEPRESSION SCREENING 1981 HEPATITIS C SCREENING 11/23/1987 HIV ONE-TIME SCREENING (18-6 5 YEARS) 11/23/1987 PAP SMEAR 1990 SMOKING STATUS SCREENING (On ce After 26 Yrs) 11/23/1995 MAMMOGRAM 2009 COLOGUARD 2014 COLONOSCOPY 2014 COLORECTAL CANCER SCREENING 2014 FIT TEST 2014 FOBT 2014 SIGMOIDOSCOPY 2014 VIRTUAL COLONOSCOPY 2014 PNEUMOCOCCAL VACCINES (50+ y ears) (1 of 1 - PCV) 11/23/2019 ZOSTER VACCINES (1 of 2) 11/23/2019 COVID-19 VACCINE (1 - 2023-2 5 season) 2023 Adult Td,Tdap Booster 09/17/2028 09/17/2018 HEPATITIS A VACCINES Aged Out No long er eligible based on patient's age to complete this topic HIB VACCINES Aged Out No longer eligi ble based on patient's age to complete this topic MENINGOCOCCAL VACCINES (ACWY) Aged Out No longer eligible based on patient's age to complete this topic MENINGOCOCCAL VACCINES (B) Aged Out N o longer eligible based on patient's age to complete this topic Medical Devices Not on file Insurance CIGNA PPO CIGNA PPO CIGNA PPO CIGNA PPO CIGNA PPO CIGNA PPO CIGNA PPO CIGNA PPO CIGNA PPO Care Teams Appraisal Technician Relationship Specialty Start Date End Date Clemente Gallegos MD [address] [place] [address] [place] [address] PCP - General Internal Medicine 09/17/18 Additional Source Comments The information contained in this document represents components of the legal health record. It is not the complete legal health record.[facility]
--- NOTE | 2024-10-18 07:18 | ED_ITS ---
HPI - General Adult General Chief complaint: Abdominal Pain Stated complaint: right side abd pain + n/v/d Time Seen by Provider: 10/18/24 07:18 History of Present Illness ED Provider: elise LUQUE narrative: The patient is a 53-year-old woman who has a history of tubal ligation. She also has a history of kidney stone episode in the past. She also has a history of a left total hip replacement because of for avascular necrosis and she says that she is having similar problems in her right hip but has not yet had hip replacement. The patient says that she was awoken last night at around 01:00 with right-sided abdominal pain that got much worse around 02:00. There was some associated nausea, vomiting, and an episode of loose stool. She was extremely uncomfortable and came to the hospital for evaluation. She says this does not feel identical to her kidney stones. She said that this felt worse although the pain has subsided somewhat while waiting to be seen. No fever, sweats, chills. No chest pain or shortness of breath. The pain is not worse when she takes a deep breath. Related Data Previous Rx's ?Medication ?Instructions ?Recorded ibuprofen 400 mg tablet 400 mg PO Q6H PRN pain #14 t abs 10/18/24 ondansetron 4 mg disintegrating 4 mg PO Q6H PRN nausea and 10/18/24 tablet vomiting #10 tabs oxycodone 5 mg tablet 5 mg PO Q6H PRN pain #10 tab s 10/18/24 tamsulosin 0.4 mg capsule 0.4 mg PO BEDTIME #5 caps Allergies Allergy/AdvReac Type Severity Reaction Status Date / Time No Known Allergies Allergy Verified 10/18/24 03:31 Review of Systems 2 Review of Systems: Yes all other systems are reviewed and are negative [facility] Past Medical History Medical History Nephrolithiasis Surgical History H/O lithotripsy Social History Social History (System 12/24/22 @ 12:38 by Jess Maria) Household Members: Spouse Housing: House Do you presently have visiting nurse or other home services: No Alcohol intake: current Alcohol intake frequency: holidays/special occasions only Advance Directives Date on File: 05/26/20 service: No Current occupational status: employed Physical Exam ED Vital Signs: Vital Signs - 24 hr 10/18/24 09:15 10/18/24 11:19 Temperature 97.0 F 98.0 F Pulse Rate 63 68 Respiratory Rate 14 17 Blood Pressure 119/64 115/56 L Pulse Oximetry 95 94 Oxygen Delivery Method Room Air Room Air BMI result Body Mass Index 24.6 Const Other: The patient is awake and alert. She did not appear obviously uncomfortable initially but she seemed to have some discomfort when she changed positions. Orientation/consciousness: patient oriented x3 HENMT Other: The face is symmetrical. ?Mucous membranes moist. Eyes General: appearance normal, both eyes and all related structures Neck Neck: Yes normal visual inspection and Yes full ROM Resp Effort & Inspection: normal respiratory effort Auscultation: clear to auscultation bilaterally Cardio Rate: regular rate Rhythm: regular rhythm Heart sounds: S1 normal heart sound present and S2 normal heart sound present GI Other: The abdomen is flat and soft. I really did not appreciate any abdominal tenderness. No Valverde's sign. Back/Spine/Pelvis Other: No marked CVA percussion tenderness in the right side. None on the left side. Skin General skin exam: no rashes or lesions noted Neuro General: patient oriented x3, tone normal, moves all extremities, no focal motor deficits and CN's II-XI intact bilaterally Extrem Other: There is no calf swelling or tenderness. No asymmetry. No peripheral edema. Medications Administered Discontinued Medications Generic Name Dose Route Start Last Admin Trade Name Freq PRN Reason Stop Dose Admin Acetaminophen 975 mg 10/18/24 09:51 10/18/24 10:11 Acetaminophen 325 Mg Tablet PO 10/18/24 09:52 975 mg ONCE ONE Administration Sodium Chloride 1,000 mls @ 999 mls/hr 10/18/24 07:45 10/18/24 08:50 Ns IV 10/18/24 08:45 Infused .Q1H1M LUPE Infusion Lactated Ringer's 1,000 mls @ 999 mls/hr 10/18/24 09:30 10/18/24 11:18 Lr IV 10/18/24 10:30 Infused .Q1H1M LUPE Infusion Ketorolac Tromethamine 15 mg 10/18/24 07:32 10/18/24 07:47 Ketorolac Tromethamine 15 Mg/Ml Vial IVPUSH 10/18/24 07:33 15 mg ONCE ONE Administration Ondansetron HCl 4 mg 10/18/24 05:29 10/18/24 05:32 Ondansetron Odt 4 Mg Tab.Sampsondis CAROLINEINGU 10/18/24 05:30 4 mg ONCE ONE Administration Ondansetron HCl 4 mg 10/18/24 07:32 10/18/24 07:47 Ondansetron Hcl 4 Mg/2 Ml Vial IVPUSH 10/18/24 07:33 4 mg ONCE ONE Administration Oxycodone HCl 5 mg 10/18/24 09:51 10/18/24 10:12 Oxycodone Hcl Immed Release 5 Mg Tablet PO 10/18/24 09:52 5 mg ONCE ONE Administration Medical Decision Making Medical Decision Making MDM Narrative: Initial considerations for this patient's presentation included a possible right-sided kidney stone, biliary colic, or possibly appendicitis. Her exam was very equivocal. There were no pulmonary symptoms to suggest a possible lung problems such as pneumonia or pulmonary embolism. The patient's CBC, LFTs, and lipase were unremarkable. She had some microscopic hematuria. On this basis I thought that a ureteral stone might be the most likely etiology of the patient's symptoms. I ordered a noncontrast CT of the abdomen and pelvis after 1st treating the patient with ketorolac and ondansetron and giving IV fluids. A CT of the abdomen and pelvis shows a 6 mm right distal ureteral stone associated with significant right-sided hydronephrosis. I explained to the patient that I thought her symptoms were coming from this kidney stone. She was able to tolerate oral pain medications. She received a total of 2 L of crystalloid. She seemed to be feeling better. I reviewed the anatomy of kidney stones with the patient. I explained that a stone of this size is close to the border of what might require procedure but that initially a trial of passage of the stone at home with pain management was reasonable if she felt well enough. She did feel well enough and she tolerated oral medication in the emergency department. She was discharged with a prescription for ibuprofen, oxycodone, ondansetron, and tamsulosin. She was given the contact information for Urology for outpatient follow-up. She should return if worse. Lab Data 10/18/24 03:37 10/18/24 03:37 Labs: Lab Results 10/18/24 10/18/24 Range/Units 03:37 08:07 WBC 12.3 H (4.8-10.8) X10*3/uL RBC 4.64 (4.20-5.50) X10*6/uL Hgb 14.2 (12.0-16.0) g/dl Hct 39.9 (37.0-47.0) % MCV 86.0 (80.0-98.0) fL MCH 30.6 (27.0-33.0) pg MCHC 35.6 H (31.0-35.0) g/dl RDW 12.6 (11.0-16.0) % Plt Count 290 (160-400) X10*3/uL MPV 9.1 L (9.4-12.3) fL Immature Gran % (Auto) 0.3 (0.0-0.4) % Neut % (Auto) 71.7 (45-73) % Lymph % (Auto) 22.4 (20-40) % Caroline % (Auto) 4.4 (2-11) % Eos % (Auto) 0.7 (0-4) % Baso % (Auto) 0.5 (0-2) % Lymph # (Auto) 2.8 (1.2-4.9) X10*3/uL Caroline # (Auto) 0.5 (0.1-1.2) X10*3/uL Eos # (Auto) 0.1 (0.0-0.4) X10*3/uL Baso # (Auto) 0.1 (0.0-0.2) X10*3/uL Abs Immat Gran (auto) 0.04 H (0.00-0.03) X10*3/uL Absolute Neuts (auto) 8.8 H (2.0-8.3) x10*3/uL Absolute Nucleated RBC 0.000 (0.0-0.012) X10*3/uL Nucleated RBC % (auto) 0.0 (0.0-0.2) /100WBC Sodium 141 (135-145) mmol/L Potassium 3.7 (3.3-5.1) mmol/L Chloride 107 (96-108) mmol/L Carbon Dioxide 23 (22-29) mmol/L Anion Gap 15 (12-20) BUN 26 H (9-16) mg/dL Creatinine 0.95 (0.5-1.4) mg/dL Estim Creat Clear Calc 60.9 Estimated GFR > 60 Random Glucose 159 H (60-115) mg/dL Calcium 9.3 D (8.4-10.2) mg/dL Total Bilirubin 0.5 (0.0-1.0) mg/dL Direct Bilirubin 0.1 (0.0-0.5) mg/dL AST 18 (5-31) U/L ALT 16 (0-31) U/L Alkaline Phosphatase 91 (39-117) U/L C-Reactive Protein 0.24 (< or = 0.50) mg/dL Total Protein 6.9 (6.5-8.0) g/dL Albumin 4.2 (3.5-5.0) g/dL Lipase 65 (8-78) U/L Urine Color Yellow Urine Appearance Cloudy Urine pH 8.0 (5.0-9.0) Ur Specific [place] 1.015 (1.005-1.025) Urine Protein Negative (Neg-Trace) mg/dL Urine Glucose (UA) Negative (Negative) mg/dL Urine Ketones 15 (Negative) mg/dL Urine Blood Small (1+) H (Negative) Urine Nitrite Negative (Negative) Ur Leukocyte Esterase Trace H (Negative) Urine RBC >20 H (0-2) /HPF Urine WBC 0-5 (0-5) /HPF Ur Squamous Epith Cells 0-2 (0-2) /HPF Urine Bacteria None Seen (None Seen) Hyaline Casts 0-2 (0-2) /LPF Urine Test NEGATIVE (NEGATIVE) Discharge Plan Discharge Clinical Impression: Ureteral colic, Calculus of distal right ureter Patient Disposition: Home, Self-Care Instructions: Renal Colic (ED), Ureteral Stones (ED) Additional Instructions: You have a 6 mm stone in your right distal ureter. You may take 2 extra-strength acetaminophen (Tylenol) tablets up to 3 times a day as needed for pain. You may also take the prescribed ibuprofen every 6 hours as needed for pain. In addition to these 2 medications you may also use the prescribed oxycodone. If you find the oxycodone is too strong you can cut the tablets in half. Use the prescribed ondansetron as needed for nausea. At bedtime take a dose of tamsulosin. This is a drug which may help relax the ureter to facilitate passage of the stone. Drink a lot of fluids. Please contact the urology office today to arrange a follow up appointment. Return to the emergency room if you are worse including worsening pain, vomiting, or fever. Prescriptions: New ibuprofen 400 mg tablet 400 mg PO Q6H PRN (Reason: pain) Qty: 14 0RF ondansetron 4 mg tablet,disintegrating 4 mg PO Q6H PRN (Reason: nausea and vomiting) Qty: 10 0RF oxycodone 5 mg tablet 5 mg PO Q6H PRN (Reason: pain) Qty: 10 0RF Rx Instructions: Partial Fill upon patient request. tamsulosin 0.4 mg capsule 0.4 mg PO BEDTIME Qty: 5 0RF Referrals: [facility] [place] [facility] [Provider Group, Urology] Interventions: ED Discharge Assessment Last Done: 10/18/24 11:19 Discharge Date/Time: 10/18/24 11:19 Print Language: Amharic
[2024-10-18 07:44] LABS: Alanine Aminotransferase 16 U/L (0-31); Albumin Level 4.2 g/dL (3.5-5.0); Alkaline Phosphatase 91 U/L (39-117); Aspartate Amino Transferase 18 U/L (5-31); Lipase 65 U/L (8-78); Total Protein 6.9 g/dL (6.5-8.0)
[2024-10-18 08:17] LABS: Appearance Urine Cloudy; Glucose Urine UA Negative (Negative); PH 8.0 (5.0-9.0); Specific Gravity - Urine 1.015 (1.005-1.025); UMIC TRIGGER UACC YES
[2024-10-18 08:20] LABS: UPreg QC Valid YES
[2024-10-18 09:15] VITALS: BP 119/64; PULSE 63; RESP 14; TEMP 36.1; O2SAT 95
[2024-10-18] MEDS: Lactated Ringers 1,000 ML 999 ML IV (09:44)
[2024-10-18] MEDS: oxyCODONE HCl Immed Release 5 MG TABLET PO (10:12)
[2024-10-18 11:19] VITALS: BP 115/56; PULSE 68; RESP 17; TEMP 36.7; O2SAT 94
== END 2024-10-18 11:19 | disposition home or self-care (01) ==
PROVIDERS: Emergency Provider Emergency Medicine
DX: N13.2 Hydronephrosis with renal and ureteral calculous obstruction (principal); R10.9 Unspecified abdominal pain; R11.2 Nausea with vomiting, unspecified; Z87.442 Personal history of urinary calculi
CPT/HCPCS: 36415; 74176; 80048; 80076; 81001; 81025; 83690; 85025; 86140; 96361; 96374; 96375; 99284; 99285; J1885; J2405; J7120

== ENCOUNTER → 2024-10-18 08:25 | Outpatient (BNV) | payer OTHER, SELFPAY | PROVIDERS: Emergency Provider Emergency Medicine; Visit Provider Radiology Diagnostic Radiology | DX: N13.2 Hydronephrosis with renal and ureteral calculous obstruction (principal) | CPT/HCPCS: 74176 ==

== ENCOUNTER 2024-11-02 13:11 | Outpatient (AMB) | payer OTHER, SELFPAY ==
--- OUTSIDE RECORDS SUMMARY | 2024-10-27 23:59 | XMS_ITS | Continuity of Care Document ---
Author Organization [facility] ter Address [address] [place] [id number]- Care Team Providers Care Shirt Ironer Name Role Phone Mouna PROPERTY INSURANCE AGENT, Lina Lei Primary Care Physician Encounter 10/26/24 - 10/27/[address] [id number] Attending Physician: Not on Staff, Attending MD Referring Physician: Not on Staff, Referring MD Encounter Type: SMRI Allergies, Adverse Reactions, Alerts No Known Allergies Medications amLODIPine 5 mg oral tablet 1 tablet = 5 mg, By Mouth, Daily, # 90 tablet, 1 Refills, Maintenance, 05/28/24 2:55:00 PM EDT, [facility], [facility], cm, 05/28/24 14:26:00 EDT, Height Start Date: 05/28/24 Stop Date: 11/24/24 Status: Ordered Quantity: 90.0 Unit: tablet Repeat number: 2 escitalopram 10 mg oral tablet 1 tablet = 10 mg, By Mouth, Daily, 0 Refills, Maintenance, 09/27/24 10:46:00 AM EDT, Partial fill upon patient request if the prescription is for a schedule II opioid drug. Start Date: 09/27/24 Status: Ordered Repeat number: 1 Magnesium Gluconate By Mouth, 2 times a day, 0 Refills, Maintenance, 08/24/24 9:38:00 AM EDT, Partial fill upon patient request if the prescription is for a schedule II opioid drug. Start Date: 08/24/24 Status: Ordered Repeat number: 1 Multivitamin 0 Refills, Maintenance, 08/24/24 9:37:00 AM EDT, Partial fill upon patient request if the prescription is for a schedule II opioid drug. Start Date: 08/24/24 Status: Ordered Repeat number: 1 quercetin phytosome quercetin phytosome, See Instructions, Refills 0, Maintenance, 08/24/24 9:40:00 AM EDT, Supply Start Date: 08/24/24 Status: Ordered Repeat number: 1 systemic enzyme complex systemic enzyme complex, See Instructions, Refills 0, Maintenance, 08/24/24 9:38:00 AM EDT, Supply Start Date: 08/24/24 Status: Ordered Repeat number: 1 Vitamin B12 0 Refills, Maintenance, 08/24/24 9:38:00 AM EDT, Partial fill upon patient request if the prescription is for a schedule II opioid drug. Start Date: 08/24/24 Status: Ordered Repeat number: 1 Vitamin D3 2000 intl units oral tablet 1 tablet = 50 mcg, By Mouth, Daily, 0 Refills, Maintenance, 02/08/24 10:40:00 PM EST, Partial fill upon patient request if the prescription is for a schedule II opioid drug. Start Date: 02/08/24 Status: Ordered Repeat number: 1 Problem List Condition Confirmation Course Effective Dates Status H ealth Status Informant Avascular necrosis of bone of left hip Confirmed Active Benign essential hypertension Confirmed Active DDD (degenerative disc disease), lumbar Confirmed Active Mild depressive episode Confirmed Active HSV-1 infection Confirmed Active Nephrolithiasis Confirmed Active Lumbar radiculopathy Confirmed Active Postmenopause bleeding- negative endometrial biopsy Confirmed Active DECLINES ALL vaccines Confirmed Active Vitamin D deficiency Confirmed Active Social History Social History Type Response Smoking Status Never (less than 100 in lifetime) entered on: 08/25/20 Sex Sex Representation Female (finding) Patient Care team information Care Team Personnel Name: Lina Freire NP Position: S PCO Associate Professional Member Role: PCP Address: [address] [place] [id number]- Telecom: Care Team Related Persons Name: MATTHEW ALDRIDGE Name: DEMETRIO ORLANDO Insurance Providers Guarantor name: RIN OR[place]O [facility] Plan Information #: 1 Payer: [place] OPEN ACCESS Payer Identifier: PRITI Member Number: [id number] Group Number: [id number] Subscriber Identifier: [id number] Relationship to Subscriber: spouse Coverage Type: Managed Care (Private) Coverage Verification Date: Telecom: PRITI Address: NA
--- OUTSIDE RECORDS SUMMARY | 2024-10-27 23:59 | XMS_ITS | Continuity of Care Document ---
Author Organization [facility] Address [address] [place] [address]- Care Team Providers Care Civil Division Commander Deputy Sheriff Name Role Phone Mouna PUTTIER, Lina Lei Primary Care Physician [phone] Encounter [facility] Date(s): 09/27/24 - 10/27/24 [facility] Adult [address] [place] [address]- Encounter Diagnosis Postmenopause bleeding(Discharge Diagnosis) - 04/10/24 Attending Physician: Ed Rosales Admitting Physician: Ed Rosales Referring Physician: Ed Rosales Encounter Type: Triage Allergies, Adverse Reactions, Alerts No Known Allergies [...] Confirmed Active Vitamin D deficiency Confirmed Active Diagnosis Diagnosis Type Effective Dates Health Status Clinical Service Informant Postmenopause bleeding Discharge Diagnosis 04/10/24 Social History Social History Type Response Smoking Status Never (less than 100 in lifetime) entered on: 08/25/20 Sex Sex Representation Female (finding) Radiology * Event Display: X-Ray Chest, Non- BH Authored Date: * Event Display: X-Ray Chest, Non- BH Authored Date: Patient Care team information Care Team Personnel Name: Lina Freire NP Position: S PCO Associate Professional Member Role: PCP Address: [address] [place] [id number] Telecom: Care Team Related Persons Name: MATTHEW ALDRIDGE Name: DEMETRIO ORLANDO Insurance Providers Guarantor name: RIN [facility] Plan Information #: 1 Payer: [place] OPEN ACCESS Payer Identifier: NA Member Number: [id number] Group Number: [id number] Subscriber Identifier: [id number] Relationship to Subscriber: spouse Coverage Type: Managed Care (Private) Coverage Verification Date: Telecom: NA Address:
--- OUTSIDE RECORDS SUMMARY | 2024-11-02 13:13 | XMS_ITS | Clinical Summary ---
Author Organization [facility] Address [address] [place] [phone] Phone Care Team Providers Care Retail Buyer Name Role Phone Clemente Gallegos MD Primary [...] PPO CIGNA PPO CIGNA PPO Care Teams Retail Buyer Relationship Specialty Start Date End Date Clemente Gallegos MD [address] [place] [address] [place] [address] PCP - General Internal Medicine 09/17/18 Additional Source Comments The information contained in this document represents components of the legal health record. It is not the complete legal health record.[facility]
--- NOTE | 2024-11-02 13:17 | MHC.OFFVIS ---
Intake Visit Reasons: Kidney Stones Intake Note: New Patient is present for kidney stones Urology Rx:Tamsulosin Blood Thinners:none Imaging completed: CT done 10/18/2024 Senior Systems Engineer Required: No Accompanied by: Self / Same As Patient Allergies No Known Allergies Allergy (Verified 11/02/24 13:19) HPI Comments Details: Gretchen is a pleasant female. They are seen for the following urologic conditions - nephrolithiasis Thinks she may have passed the stone Three-month follow-up ultrasound She is very good about using lemon water and thinks this is significantly reduced her stone frequency Nephrolithiasis She presents for - initial evaluation for nephrolithiasis, Initial presentation through emergency room although has had multiple prior stones in the past Presenting symptoms included right-sided flank pain associated with nausea Imaging - 11/05 distal right UVJ 6 mm stone with proximal hydro nephrosis Laboratory investigations - 0.95 Stone composition - unknown 24 hour urine evaluation - none on file Interventions - prior ESWL Current therapeutic plan - surveillance imaging - encourage lemon fluid and 2.5 L per day water - vitamin B6 [facility] Medical History (Updated 11/02/24 @ 13:48 by Corey Yen MD) Nephrolithiasis Surgical History (System 12/24/22 @ 12:38 by Jess Maria) H/O lithotripsy Social History (System 12/24/22 @ 12:38 by Jess Maria) Household Members: Spouse Housing: House Do you presently have visiting nurse or other home services: No Alcohol intake: current Alcohol intake frequency: holidays/special occasions only Advance Directives Date on File: 05/26/20 service: No Current occupational status: employed Review of Systems Const Denies chills and Denies fever(s) Card Reports no additional complaints and Denies syncope Resp Denies cough GI Denies abdominal pain and Denies heartburn Reports as per HPI and Denies change in libido Neuro Denies syncope Psych Denies change in libido Endo Denies change in libido Physical Exam Const General: cooperative, healthy appearing, comfortable and no acute distress Orientation/consciousness: patient oriented x3 HEENT Face and sinus: Yes normal facial exam Mouth: moist mucous membranes Neck Neck: Yes normal visual inspection, Yes full ROM and Yes trachea midline Chest Chest palpation & inspection: normal inspection of the chest Resp Effort & Inspection: normal respiratory effort, able to speak in complete sentences and no respiratory distress GI Inspection: Yes normal to inspection Back/Spine/Pelvis Cervical Spine: normal cervical lordosis Thoracic/Lumbar Spine: thoracic and lumbar spine normal to inspection Skin General skin exam: no rashes or lesions noted Neuro General: patient oriented x3, gait normal, tone normal and moves all extremities Extrem General: Yes normal to inspection and Yes capillary refill normal Results AMB Urinalysis, Automated UA Leukoctes 125 Leela/uL Last Edit by WHITLEY Sandhu on 11/02/24 13:34 UA Nitrite Negative Last Edit by Daisy Mckenzie [facility] [place] on 11/02/24 13:34 UA Urobilinogen 0.2 mg/dL Last Edit by Daisy Mckenzie [facility] [place] on 11/02/24 13:34 UA Protein 0 mg/dL Last Edit by Daisy Mckenzie [facility] [place] on 11/02/24 13:34 UA pH 6.0 Last Edit by Daisy Mckenzie [facility] [place] on 11/02/24 13:34 UA Blood 0 Twan/uL Last Edit by Daisy Mckenzie [facility] [place] on 11/02/24 13:34 UA Specific [place] 1.020 Last Edit by Daisy Mckenzie [facility] [place] on 11/02/24 13:34 UA Ketone Negative Last Edit by Daisy Mckenzie [facility] on 11/02/24 13:34 UA Bilirubin 0 mg/dL Last Edit by Daisy Mckenzie [facility] [place] on 11/02/24 13:34 UA Glucose 0 mg/dL Last Edit by Daisy Mckenzie [facility] [place] on 11/02/24 13:34 Results Reviewed Results Reviewed: Laboratory Last Values Urine pH (Auto) 6.0 11/02/24 13:33 Specific [place] (Auto) 1.020 11/02/24 13:33 Urine Protein (Auto) 0 mg/dL 11/02/24 13:33 Glucose (UA)(Auto) 0 mg/dL 11/02/24 13:33 Urine Ketones (Auto) Negative 11/02/24 13:33 Urine Blood (Auto) 0 Twan/uL 11/02/24 13:33 Urine Nitrite (Auto) Negative 11/02/24 13:33 Urine Bilirubin (Auto) 0 mg/dL 11/02/24 13:33 Urine Urobilinogen (Auto) 0.2 mg/dL 11/02/24 13:33 Leukocyte Esterase (Auto) 125 Leela/uL 11/02/24 13:33 Assessment & Plan Assessment & Plan (1) Nephrolithiasis: Code(s): N20.0 - Calculus of kidney Category: Medical Plan Three-month follow-up ultrasound nurse-practitioner Orders: Orders AMB Urinalysis Automated Today Z13.9 - Encounter for screening, unspecified US renal BI 3 Months N20.0 - Calculus of kidney Patient Instructions: This note is constructed using voice recognition software. While every effort has been made to ensure accuracy set builder errors may have been included. Imaging studies, laboratory and physical exam results were discussed and reviewed in detail. No major barriers to patient understanding were identified. An opportunity to ask questions regarding the treatment plan was provided. All questions were answered. The patient expressed understanding and agreement with the above treatment plan. The patient is aware they should contact our office by phone for worsening of their current condition or the appearance of new urologic symptoms. Compliance is encouraged with any medications and followup testing that is ordered. It is a privilege to participate in the urologic care of your patient. If you have any questions or concerns regarding treatment for the above conditions, or other urologic issues, please do not hesitate to contact me. The office telephone contact is [phone]. Sincerely, Dr Corey Yen MD, [facility] - Urology Compassionate Specialist Care for the Genitourinary System Coding Level of Care Code New Pt Level 3 (40971) Diagnoses Nephrolithiasis N20.0
== END 2024-11-02 13:50 | disposition home or self-care (01) ==
LOC: HO.HUSH 13:11
PROVIDERS: Visit Provider Urology
DX: N20.0 Calculus of kidney (principal); Z13.9 Encounter for screening, unspecified
CPT/HCPCS: 99203

== ENCOUNTER → 2024-11-02 13:11 | Outpatient (BNVA) | payer OTHER, SELFPAY | PROVIDERS: Visit Provider Urology | DX: N20.0 Calculus of kidney (principal) | CPT/HCPCS: 81003 ==

== ENCOUNTER 2025-01-18 09:02 | Outpatient (REF) | payer OTHER, SELFPAY ==
--- NOTE | ~2025-01-18 | US_ITS ---
CLINICAL HISTORY: N20.0 - Calculus of kidney US kidneys Comparison: None Findings: Right kidney normal size and echotexture, 10.4 cm length. No hydronephrosis. Normal color flow. Left kidney normal size and echotexture, 12.7 cm length. No hydronephrosis. Normal color flow. Questionable duplication of the collecting system, anatomic variant. Impression: 1. Unremarkable kidneys. This document has been electronically signed by: Jerman Farfan MD on 01/19/2025 16:31:43
--- OUTSIDE RECORDS SUMMARY | 2025-01-18 10:03 | XMS_ITS | Clinical Summary ---
Author Organization [facility] Address [address] [place] [phone] Phone Care Team Providers Care Six Color Press Operator Name Role Phone Clemente Gallegos MD Primary [...] 11/23/2019 ZOSTER VACCINES (1 of 2) 11/23/2019 INFLUENZA VACCINE (#1) 2024 COVID-19 VACCINE (1 - 2024-2 6 season) 2024 Adult Td,Tdap Booster 09/17/2028 09/17/2018 RSV VACCINE (1 - 1-dose 75+ series) 2044 HEPATITIS A VACCINES Aged Out No long [...] topic Medical Devices Not on file Insurance CIG[employer]ITI PPO CIGNA PPO CIGNA PPO CIGNA PPO CIGNA PPO CIGNA PPO CIGNA PPO CIGNA PPO CIGNA PPO Care Teams Six Color Press Operator Relationship Specialty Start Date End Date Clemente Gallegos MD [address] [place] [address] [place] [address] PCP - General Internal Medicine 09/17/18 Additional Source Comments The information contained in this document represents components of the legal health record. It is not the complete legal health record.[facility]
== END 2025-01-18 09:03 | disposition home or self-care (01) ==
LOC: HO.HMGCX 09:02
PROVIDERS: PCP Nurse Practitioner Family; Visit Provider Urology
DX: N20.0 Calculus of kidney (principal)
CPT/HCPCS: 76775

== ENCOUNTER → 2025-01-18 09:06 | Outpatient (BNV) | payer OTHER, SELFPAY | PROVIDERS: PCP Nurse Practitioner Family; Visit Provider Radiology Diagnostic Radiology | DX: N20.0 Calculus of kidney (principal) | CPT/HCPCS: 76775 ==